=== PATIENT | male | born 1960 | race Caucasian/White ===

== ENCOUNTER 2019-12-10 21:16 | Inpatient (IN) | payer BC, MEDICAID, SELFPAY ==
[~2019-12-10] VITALS: Ht 175.3 cm; Wt 88.9 kg
--- NOTE | 2019-12-10 21:17 | NUR ---
PT BIB W/C TO ER BED 8
[2019-12-10 21:25] VITALS: BP 127/198
--- NOTE | 2019-12-10 21:26 | NUR ---
ERMD BEDSIDE EVALUATING PT
[2019-12-10] MEDS ORDERED: NACL 0.9% 1,000 ML IV ONE (21:35)
[2019-12-10] MEDS ORDERED: ACETAMINOPHEN EXTRA STRENGTH 500 MG TAB PO ONE (21:35)
--- NOTE | 2019-12-10 21:35 | NUR ---
59 YEAR OLD MALE BROUGHT IN BY FAMILY FOR ALTERED MENTAL STATUS. PER FAMILY PATIENT HAS HAD A COUGH, FEVER, AND SOB X 3 DAYS, THEN IN THE MORNING THE PATIENT WAS OFF BALANCE AND NOT ACTING HIMSELF AND SEEMED CONFUSED. PATIENT AOX3 TO NAME, , LOCATION. PATIENT WOULD ANSWER QUESTIONS INCORRECTLY AT TIMES. PATIENT GCS 14 ([id number]), BREATHING EVEN AND UNLABORED, LUNGS CTABL, SKIN WARM AND DRY. COVID PRECAUTIONS INTITIATED PER PROTOCOL. SPO2 95% ON 4L NC, PATIENT SPO2 88% ON RA. BLOOD SUGAR 164. PATIENT PLACED ON MONITOR, ERMD AT BEDSIDE. BED IN LOWEST POSITION, LOCKED, BED RAIL UPX1. PMH - HTN, HYPERLIPIDEMIA ALLERGIES - MORPHINE
--- NOTE | 2019-12-10 21:39 | NUR ---
Spoke with daughter digna, Digna states pt having cough, fever and SOB x 4 days. Pt having ALOC since 0300, Pt having loss of balance, fequent urination and abd pain. Digna states last time pt had ALOC, pt had surgery for diverticulitis. NKDA HX: HTN, Hyperlipidemia, diverticulitis
--- NOTE | 2019-12-10 21:55 | NUR ---
CORONAVIRUS TEST SWAB OBTAINED AND SENT TO LAB
--- NOTE | 2019-12-10 22:10 | NUR ---
PATIENT ALERT AND AWAKE, BREATHING EVEN AND UNLABORED
[2019-12-10 22:17] LABS: APPEARANCE,URINE CLEAR (CLEAR); BILIRUBIN,URINE NEGATIVE (NEGATIVE); BLOOD, URINE NEGATIVE (NEGATIVE); COLOR,URINE YELLOW (YELLOW); LEUKOCYTE ESTERASE ,URINE TRACE (NEGATIVE); NITRITE, URINE NEGATIVE (NEGATIVE); UGLUCOSE NEGATIVE (NEGATIVE)
[2019-12-10 22:18] LABS: HEMATOCRIT 46.8 % (36-52); LYMPHOCYTES # (AUTO) 1.4 K/uL (2.0-11.5); NEUTROPHILS # (AUTO) 4.3 K/uL (1.8-7.7)
[2019-12-10 22:22] LABS: BASOPHILS % (AUTO) 0.3 % (0.0-2.0); EOSINOPHILS % (AUTO) 0.2 % (0.0-4.0); HEMOGLOBIN 16.4 g/dL (12.0-18.0); LYMPHOCYTES % (AUTO) 22.2 % (20.5-51.1); MEAN CORPUSCULAR HEMOGLOBIN 31 pg (27-31); MEAN CORPUSCULAR HGB CONC 35 g/dL (33-37); MONOCYTES # (AUTO) 0.5 K/uL (0.8-1.0); MONOCYTES % (AUTO) 7.8 % (1.7-9.3); NEUTROPHILS % (AUTO) 69.5 % (42.2-75.2); PLATELET COUNT (AUTO) 197 K/uL (140-450); RED BLOOD CELL COUNT(AUTO) 5.26 MIL/uL (4.20-6.10); RED CELL DISTRIBUTION WIDTH 13.2 % (11.6-13.7); WHITE BLOOD COUNT (AUTO) 6.2 K/uL (4.8-10.8)
[2019-12-10 23:02] LABS: ALBUMIN 3.5 g/dL (3.4-5.0); ANION GAP 14.2 (8-16); CARBON DIOXIDE 26.6 mmol/L (21-32); CREATININE 1.6 mg/dL (0.6-1.3); TOTAL BILIRUBIN 0.6 mg/dL (0.0-1.0)
[2019-12-10 23:04] LABS: RBC,URINE 0-5 /HPF (0-5); WBC,URINE 0-5 /HPF (0-5)
[2019-12-10 23:14] LABS: CREATINE KINASE MB 0.8 ng/mL (0-3.6)
[2019-12-10 23:20] LABS: POTASSIUM 2.8 mmol/L (3.5-5.1)
--- NOTE | 2019-12-10 23:47 | NUR ---
PATIENT ALERT AND AWAKE, BREATHING EVEN AND UNLABORED. CT CALLED REGARDING PATIENT.
--- NOTE | 2019-12-10 23:57 | NUR ---
PATIENT TAKEN TO CT
--- NOTE | 2019-12-11 00:14 | NUR ---
PT RETURNED FROM CT VIA W/C
[2019-12-11] MEDS ORDERED: cefTRIAXone 2,000 MG in DEXTROSE 5% 100 ML IV ONE (00:45)
[2019-12-11] MEDS ORDERED: AZITHROMYCIN 250 MG TAB PO ONE (00:45)
[2019-12-11] MEDS ORDERED: POTASSIUM CHLORIDE 10 MEQ TABER PO ONE ×2 (01:00→23:00)
[2019-12-11] MEDS ORDERED: ALBUTEROL HFA MDI 90 MCG/ACTUATION 8 GM INH PRN (01:05)
--- NOTE | 2019-12-11 01:05 | NUR ---
PATIENT ALERT AND AWAKE, BREATHING EVEN AND UNLABORED
[2019-12-11] MEDS ORDERED: cefTRIAXone 2,000 MG VIAL ONE (01:07)
[2019-12-11] MEDS: NACL 0.9% 1,000 ML IV SCH (01:31)
[2019-12-11] MEDS ORDERED: DOCUSATE SODIUM 100 MG GELCAP PO PRN (01:35)
[2019-12-11 01:50] VITALS: BP 119/61
--- NOTE | 2019-12-11 01:50 | NUR ---
Patient will be admitted to care of DR IBARRA. Admited to TELE. Will go to room 115. Belongings list completed. Report to RICHARD ESPINOZA.
--- NOTE | 2019-12-11 01:50 | NUR ---
RECEIVED PT. FROM ER PER TEN AWAKE AND ALERT. IVF SITE TO [facility] #20. IVF ABT INFUSING WELL. NO NOTED ADVERSE REACTIONS TO MEDICATION. PT. ABLE TO VERBALIZE WELL WITH RESIDENT MD GUZMAN. PT. DX. SOB, FEVER R/O COVID 19. ORIENTED TO ROOM AND CARE GIVERS. NOTED WITH BOUTS OF CONFUSION. ISOLATION PRECAUTION . CALL LIGHT WITH IN REACH.
--- NOTE | 2019-12-11 01:56 | NUR ---
Note shannon in ED - 12/11/19 at 0158 by ULISES Patient will be admitted to care of DR IBARRA. Admited to TELE. Will go to room 115. Belongings list completed. Report to RICHARD ESPINOZA.
[2019-12-11 02:07] LABS: PROTHROMBIN TIME 10.5 secs (10.8-13.4)
[2019-12-11 02:20] LABS: BARBITURATE, URINE NEGATIVE ng/ml (NEG <=200); BENZODIAZEPINE, URINE NEGATIVE ng/mL (NEG <=200); CANNABINOID, URINE NEGATIVE ng/mL (NEG <=50); COCAINE, URINE NEGATIVE ng/mL (NEG <=300); OPIATE, URINE NEGATIVE ng/mL (NEG <=2000); PHENCYCLIDINE SCREEN,URINE NEGATIVE ng/mL (NEG <=25)
[2019-12-11 03:05] LABS: MAGNESIUM 1.9 mg/dL (1.8-2.4); PHOSPHORUS 2.6 mg/dL (2.5-4.9); THYROID STIMULATING HORMONE 1.96 uIU/mL (0.34-3.74)
[2019-12-11] MEDS: HYDROXYCHLOROQUINE 200 MG TAB PO SCH ×3 (03:23→21:00)
[2019-12-11 04:00] VITALS: BP 123/74
--- NOTE | 2019-12-11 04:14 | NUR ---
PT. AWAKE AND STANDING IN ROOM. PULLED OUT IVF. PT. ABLE TO GO RESTROOM BY HIMSELF. ABLE TO VERBALIZE NEEDS. REMINDED TO PLEASE USE CALL LIGHT FOR ANY HELP HE MAY NEED OR IF HE WANTS TO GO RESTROOM. "OK"
[2019-12-11] MEDS ORDERED: OLANZapine 2.5 MG TAB PO ONE (05:20)
--- NOTE | 2019-12-11 05:40 | NUR ---
PT. FOUND INSIDE ROOM WALKING AROUND NAKED. INFORMED CHARGE NURSE AND RESIDENT MD OF PT. BEING CONFUSED. PT. SMILED WHEN I ASKED HIM WHAT HE WAS DOING. ASSISTED BY CLINICAL OPERATIONS MANAGER AT THIS TIME TO PUT BACK HOSPITAL GOWN. PT. PULLED OUT IVF SITE. TIP INTACT.
--- NOTE | 2019-12-11 07:05 | NUR ---
ENDORSED TO AM RN FOR CONTINUITY OF CARE. PT. AT THIS TIME IN BED SITTING UP AND WATCHING TV. BEEN AFEBRILE ON MY SHIFT. CALL LIGHT WITH IN REACH. TELEMETRY MONITORING. ISOLATION PRECAUTION OBSERVED.
--- NOTE | 2019-12-11 07:10 | NUR ---
REPORT GIVEN FROM NIGHT NURSE. PATIENT IN STABLE CONDITION. NO IV ACCESS AT THIS TIME. PLANS OF CARE DISCUSSED. SAFETY MEASURES IN PLACE.
[2019-12-11] MEDS ORDERED: OLANZapine 2.5 MG TAB ONE (07:31)
[2019-12-11 08:00] VITALS: BP 136/73
--- NOTE | 2019-12-11 08:20 | NUR ---
PATIENT HAS BEEN SCREENED AND CATEGORIZED MODERATE NUTRITION RISK. PATIENT WILL BE SEEN WITHIN 3-5 DAYS OF ADMISSION. 12/13/19 12/15/[address]
[2019-12-11] MEDS: OLANZapine 2.5 MG TAB PO SCH (09:00)
[2019-12-11 09:09] LABS: CHOL/HDL RATIO 6.1 (1-4.5)
[2019-12-11] MEDS: AZITHROMYCIN 250 MG TAB PO SCH (09:27)
[2019-12-11] MEDS: ASCORBIC ACID 500 MG TAB PO SCH (09:28)
[2019-12-11] MEDS: ZINC SULF 220 MG CAP PO SCH (09:28)
--- NOTE | 2019-12-11 09:30 | NUR ---
ZYPREXA NOT GIVEN. MED GIVEN AT 0732 BY NIGHT NURSE.
--- NOTE | 2019-12-11 09:45 | NUR ---
PATIENT AWAKE, ALERT, ORIENTED X2. PATIENT REQUIRES FREQUENT PROMPTING AND REORIENTATION. PATIENT EDUCATED TO KEEP O2 NC ON AT ALL TIMES TO PREVENT SOB. WILL CONTINUE TO MONITOR.
--- NOTE | 2019-12-11 10:14 | NUR ---
Precision Honer Note: Basic Screen: Yes High Risk DC Screen [place]: DOMINGO JOINER [place] Relationship: Pre-Admission Living Arrangements: Lives with Other Prior ADL Independent Current Home Health Name/Tel: N/A Current DME/02 Name/Tel: N/A Current Hospice Name/Tel: N/A Current Dialysis Name/Tel: N/A Healthcare Decision Maker: Patient Advance Directive No Physician Orders for Life Sustaining Treatment Form No Patient/Family Have Educational Needs No Discipline: Case Mgt/Social Svcs Tentative Discharge Plan/Destination: No Needs Identified Will require assistance post discharge: No Referred to Kiln Repairer: No Tentative Discharge Plan Summary: Patient is a 59-year-old male admitted for fever and r/o COVID. Patient has PMHX of HTN, HLD, and diverticulitis. Patient was admitted from home where mikal camelia with , daughter, and grandchild. SW contacted Domingo Joiner [phone]. Per Domingo, patient has no history of mental health or substance abuse history. Domingo stated that patient is independent with ADLs and was healthy prior to his hospitalization. Tentative discharge plan is for patient to return home. No further needs identified. Signature: MISSY Guajardo Date: Dec 11, 2019 Time: 10:14
--- NOTE | 2019-12-11 11:16 | NUR ---
DC PLANNIN YRS OLD MALE PATIENT WAS ADMITTED FROM HOME WITH A DX OF FEVER, SOB,R/O COVID. PT HAS A HX OF HTN, HLD AND DIVERTICULITIS. CXR SHOWED NO ACUTE CARDIOPULMONARY DISEASE ,CT CHEST SHOWED MULTIPLE PATCHY GROUND GLASS HAZY OPACITIES IN THE MID AND LOWED LUNGS BILATERALLY CONSISTENT WITH COVID 19 . BLOOD AND URINE CULTURE PENDING, COVID 19 TEST PENDING WELL. STARTED ON ABX IV ROCEPHIN, AZITHROMYCIN , PLAQUENIL 400 MG PO BID FOR 4 DAYS. STARTED ON ZINC 2200MG DAILY AND ASCORBIC ACID . RT PROTOCOL WITH MDI BREATHING TREATMENT PULMO AND ID DR RAYMOND CONSULT ORDERED. DC PLAN PER MD RECOMMENDATIONS CM TO FOLLOW .
[2019-12-11 12:00] VITALS: BP 125/81
--- NOTE | 2019-12-11 12:15 | NUR ---
ROUNDS MADE. PATIENT EDUCATED TO KEEP O2 NC AT ALL TIMES TO PREVENT SOB. PATIENT VERBALIZED UNDERSTANDING. PATIENT IS ALERT, AWAKE, WITH PERIODS OF CONFUSION. ENCOURAGED TO USE CALL LIGHT FOR ASSISTANCE.
[2019-12-11] MEDS ORDERED: POTASSIUM CHLORIDE 10 MEQ TABER PO SCH (14:00)
--- NOTE | 2019-12-11 14:00 | NUR ---
PATIENT IN STABLE CONDITION. PATIENT ON O2 @ 3L NC. EDUCATED ABOUT THE IMPORTANCE OF KEEPING THE OXYGEN CANNULA IN PLACE AT ALL TIMES. PATIENT REQUIRES PROMPTING AND REORIENTATION. WILL CONTINUE TO MONITOR. NO DISTRESS NOTED.
--- NOTE | 2019-12-11 15:00 | NUR ---
PATIENT STILL WITH NO IV ACCESS. UNABLE TO SUCCESSFULLY INSERT IV AFTER MULTIPLE ATTEMPTS.
[2019-12-11 16:00] VITALS: BP 130/73
--- NOTE | 2019-12-11 17:45 | NUR ---
PICC LINE TO BE INSERTED. CONSENT RECEIVED FROM DAUGHTER AND VIA TELEPHONE VERBAL CONSENT.
--- NOTE | 2019-12-11 18:00 | NUR ---
PATIENT IS IN BED ASLEEP. RESPIRATION EVEN AND UNLABORED. DENIES ANY PAIN. O2 ON @ 3L VIA NC. NO DISTRESS NOTED. WILL CONTINUE TO MONITOR.
[2019-12-11 19:19] LABS: ANION GAP 18.4 (8-16); CARBON DIOXIDE 23.8 mmol/L (21-32); CREATININE 1.8 mg/dL (0.6-1.3); POTASSIUM 3.2 mmol/L (3.5-5.1)
--- NOTE | 2019-12-11 19:20 | NUR ---
REPORT GIVEN TO NIGHT NURSE FOR CONTINUITY OF CARE. PATIENT IN STABLE CONDITION.
--- NOTE | 2019-12-11 19:21 | NUR ---
RECEIVED REPORT FROM AM SHIFT RN. PATIENT IN BED. PICC LINE NURSE IS AT THE BEDSIDE CURRENTLY INSERTING PICC LINE. PATIENT IN NOT IN ANY RESPIRATORY DISTRESS. ON 02 AT 3LPM VIA NC. DENIES PAIN. PLAN OF CARE WAS DISCUSSED. CALL LIGHT WITHIN REACH. WILL CONTINUE TO MONITOR.
[2019-12-11 20:00] VITALS: BP 137/69
--- NOTE | 2019-12-11 20:41 | NUR ---
RECEIVED REPORT FROM AM SHIFT. PATIENT IN NO APPARENT RESPIRATORY DISTRESS AT THIS TIME: RR 18, HR 96, SPO2 94% ON 4L NASAL CANNULA. AUSCULTATION REVEALS BILATERAL CLEAR BREATH SOUNDS. MDI PRN TX NO INDICATED AT THIS TIME. WILL CONTINUE TO MONITOR PATIENT.
--- NOTE | 2019-12-11 22:00 | NUR ---
PATIENT IS SITTING ON BED. NO DISTRESS NOTED. DENIES PAIN. DUE MEDS GIVEN ORDERED. GAVE PRN TYLENOL FOR TEMP 101. TOLERATED WELL. RESPIRATION EVEN AND UNLABORED. KEPT CLEAN,DRY AND COMFORTABLE. CALL LIGHT WITHIN REACH. WILL CONTINUE TO MONITOR.
--- NOTE | 2019-12-11 23:30 | NUR ---
PATIENT NOTED STANDING IN FRONT OF HIS TABLE. GUIDED PATIENT SAFELY TO BED. TEMP WENT DOWN TO 98.4. DENIES PAIN. RESPIRATION EVEN AND UNLABORED. PATIENT SLEPT BEFORE I WENT OUT OF THE ROOM. CALL LIGHT WITHIN REACH
[2019-12-11] MEDS: ACETAMINOPHEN 325 MG TAB PO PRN (23:42)
[2019-12-12] VITALS: BP 125/70
[2019-12-12] MEDS: NACL 0.9% 1,000 ML IV SCH ×2 (01:02→10:16)
[2019-12-12] MEDS ORDERED: ETOMIDATE 20 MG/10 ML VIAL IVP ONE (02:00)
[2019-12-12] MEDS ORDERED: ROCURONIUM 50 MG/5 ML VIAL IV ONE (02:00)
--- NOTE | 2019-12-12 02:30 | NUR ---
PATIENT SLEEPING. NO SOB NOTED. RESPIRATION EVEN AND UNLABORED. WILL CONTINUE TO MONITOR.
[2019-12-12 04:00] VITALS: BP 150/78
--- NOTE | 2019-12-12 04:30 | NUR ---
PATIENT ASLEEP. AROUSABLE THROUGH VERBAL. CHECKED V/S. AFEBRILE. 98.2. DENIES PAIN. NOT IN ANY ACUTE DISTRESS. CALL LIGHT WITHIN REACH AT ALL TIMES.
--- NOTE | 2019-12-12 06:45 | NUR ---
CHECKED PATIENT. AWAKE. ASKED IF HE IS OK. PATIENT SAID 'YES'. DENIES PAIN. NOT IN ANY ACUTE DISTRESS. KEPT COMFORTABLE, CLEAN AND DRY AT ALL TIMES. CALL LIGHT WITHIN REACH. WILL ENDORSE TO AM SHIFT FOR CONTINUITY OF CARE.
[2019-12-12 07:15] LABS: BASOPHILS % (AUTO) 0.5 % (0.0-2.0); HEMATOCRIT 43.7 % (36-52); HEMOGLOBIN 14.9 g/dL (12.0-18.0); LYMPHOCYTES # (AUTO) 1.6 K/uL (2.0-11.5); LYMPHOCYTES % (AUTO) 23.6 % (20.5-51.1); MEAN CORPUSCULAR HEMOGLOBIN 31 pg (27-31); MEAN CORPUSCULAR HGB CONC 34 g/dL (33-37); MEAN CORPUSCULAR VOLUME 89.9 fL (80-94); MONOCYTES # (AUTO) 0.4 K/uL (0.8-1.0); MONOCYTES % (AUTO) 5.3 % (1.7-9.3); NEUTROPHILS # (AUTO) 4.9 K/uL (1.8-7.7); NEUTROPHILS % (AUTO) 70.6 % (42.2-75.2); PLATELET COUNT (AUTO) 166 K/uL (140-450); RED BLOOD CELL COUNT(AUTO) 4.86 MIL/uL (4.20-6.10); RED CELL DISTRIBUTION WIDTH 13.2 % (11.6-13.7)
--- NOTE | 2019-12-12 07:20 | NUR ---
RECEIVED REPORT FROM SHINGLE SAWYER NURSE. PATIENT LYING DOWN IN BED SLEEPING, AROUSABLE BY VOICE. NO DISTRESS NOTED. AAOX2, INTERMITTENT CONFUSION PER NIGHT RN, SKIN INTACT. RUARM PICC LINE INTACT, PATENT, AND INFUSING IVF PER MD ORDERS. RESPIRATIONS EVEN, UNLABORED, ON O2 3L/MIN VIA NC. REVIEWED PLAN OF CARE WITH PATIENT. PATIENT VERBALIZED UNDERSTANDING. SAFETY MEASURES IN PLACE, CALL LIGHT WITHIN REACH. WILL CONTINUE TO MONITOR.
[2019-12-12 08:00] VITALS: BP 149/84
[2019-12-12 08:04] LABS: ALBUMIN 3.5 g/dL (3.4-5.0); ANION GAP 13.2 (8-16); ASPARTATE AMINOTRANSFERASE 98 U/L (15-37); CARBON DIOXIDE 28.4 mmol/L (21-32); CHLORIDE 99 mmol/L (98-107); CREATININE 1.4 mg/dL (0.6-1.3); GFR ARICAN-AMERICAN 66 mL/min (>90); GLUCOSE 99 mg/dL (74-106); MAGNESIUM 1.8 mg/dL (1.8-2.4); PHOSPHORUS 3.1 mg/dL (2.5-4.9); POTASSIUM 3.6 mmol/L (3.5-5.1); SODIUM SERUM 137 mmol/L (136-145); TOTAL BILIRUBIN 0.7 mg/dL (0.0-1.0); UREA NITROGEN, BLOOD 20 mg/dL (7-18)
--- NOTE | 2019-12-12 09:45 | NUR ---
PATIENT CONFUSED, HAD DIARRHEA ALL OVER FLOOR. ASSSITED SERVICE LINE COORDINATOR IN CLEANING PATIENT. SCHEDULED MEDICATIONS DUE GIVEN. WILL CONTINUE TO MONITOR.
[2019-12-12] MEDS: AZITHROMYCIN 250 MG TAB PO SCH (09:47)
[2019-12-12] MEDS: ZINC SULF 220 MG CAP PO SCH (09:47)
[2019-12-12] MEDS: ASCORBIC ACID 500 MG TAB PO SCH (09:47)
[2019-12-12] MEDS: OLANZapine 2.5 MG TAB PO SCH (09:47)
[2019-12-12] MEDS: HYDROXYCHLOROQUINE 200 MG TAB PO SCH ×2 (09:47→21:01)
--- NOTE | 2019-12-12 11:20 | NUR ---
DR. AGUILERA AT BEDSIDE REVIEWING PLAN OF CARE. PER DR. AGUILERA, HAVE RT PLACE HIM ON NON-REBREATHER MASK DUE TO HYPOXIA. NOTIFIED RESPIRATORY THERAPIST TONE, HE IS ON HIS WAY. ALSO CHECKED PATIENT'S TEMP, IT IS 102.0 WILL ADMINISTER TYLENOL.
[2019-12-12] MEDS: ACETAMINOPHEN 325 MG TAB PO PRN ×2 (11:28→17:44)
[2019-12-12] MEDS ORDERED: GLUCAGON 1 MG VIAL IVP PRN (11:40)
[2019-12-12] MEDS ORDERED: DEXTROSE 50% 50 ML SYR IVP PRN (11:40)
[2019-12-12] MEDS ORDERED: FUROSEMIDE 20 MG/2 ML VIAL IVP SCH (11:45)
--- NOTE | 2019-12-12 11:58 | NUR ---
SATURATION 88% ON HUMIDIFIED SUPPLEMENTAL OXYGEN AT 4 LPM VIA NC POST MDI THERAPY CHANGED OXYGEN DEVICE TO NON REBREATHER WITH SUPPLEMENTAL OXYGEN AT 15 LPM YANET/RN NOTIFIED REFERENCE RN NOTES AT 8780
[2019-12-12 12:00] VITALS: BP 121/78
--- NOTE | 2019-12-12 13:00 | NUR ---
PATIENT CONFUSED, GOT OUT OF BED AND HAD DIARRHEA ON THE FLOOR. ASSISTED INSTRUCTIONAL SYSTEMS DESIGNER IN CLEANING PATIENT AND FLOOR. SAFETY MEASURES IN PLACE, CALL LIGHT WITHIN REACH. WILL CONTINUE TO MONITOR.
--- NOTE | 2019-12-12 15:24 | NUR ---
PATIENT SITTING IN BED, CONTINUES TO REMOVE NON-REBREATHER MASK, CONFUSED. NO DISTRESS NOTED. WILL CONTINUE TO MONITOR.
[2019-12-12 16:00] VITALS: BP 114/82
[2019-12-12] MEDS: BLOOD GLUCOSE MONITORING 1 DEV DEV FS SCH ×2 (16:43→21:01)
--- NOTE | 2019-12-12 17:50 | NUR ---
TRANSFERRED PATIENT TO ICU BED 3 SAFELY. GAVE REPORT TO ALEXIS BLACKSEBD TEACHER AT ICU. ANSWERED ALL OF HER QUESTIONS. PATIENT TRANSFERRED AT THIS TIME TO ICU 3 IN STABLE CONDITION.
--- NOTE | 2019-12-12 17:50 | NUR ---
PT TEMP 100.4. PRN TYLENOL GIVEN. PATIENT TOLERATED IT. WILL CONTINUE TO MONITOR PATIENT.
--- NOTE | 2019-12-12 17:51 | NUR ---
RECEIVED REPORT FROM ALEXIS HOLT AT BEDSIDE FOR CONTINUITY OF CARE. PATIENT AMBULATED TO BED. ON 15L O2 NRB. NONCOMPLIANT AND CONFUSED, KEEPS ON MOVING LEADS. SETTLED PATIENT IN ROOM WITH BSC. PT IN DROPLET PRECAUTIONS TO R/O COVID. SAFETY PRECAUTIONS IN PLACE, CALL LIGHT WITHIN REACH, BED IN LOWEST POSITION WITH BRAKES ON.
--- NOTE | 2019-12-12 18:40 | NUR ---
PATIENT HAD DIARRHEA AND VOIDED ON FLOOR. PATIENT GOWN AND SOCKS CHANGED, LINENS CHANGED. PATIENT CONFUSED, REPEATEDLY ATTEMPTS TO REMOVE NRB MASK. ORIENTED HIM TO FLOOR, AND NEED FOR LEADS TO MONITOR STATUS AND MASK FOR OXYGEN. PATIENT STATED "OK" AND IS CURRENTLY CALM, SITTING ON SIDE OF BED, REFUSES TO GET BACK INTO BED, TEMPERATURE RETAKEN, TEMP 99.6. WILL CONTINUE TO MONITOR PATIENT. DROPLET AND SAFETY PRECAUTIONS IN PLACE, CALL LIGHT WITHIN REACH, WILL CONTINUE TO MONITOR PATIENT.
--- NOTE | 2019-12-12 19:30 | NUR ---
REPORT GIVEN TO INSPECTOR HANDBAG FRAMES RN AT BEDSIDE FOR CONTINUITY OF CARE. PATIENT SITTING ON SIDE OF BED, NO S/S OF DISTRESS NOTED.
--- NOTE | 2019-12-12 19:31 | NUR ---
RECEIVED REPORT FROM SOFIA JOVEL RN. PATIENT IS SITTING AT EDGE OF BED. NO DISTRESS NOTED. AAOX2, INTERMITTENT CONFUSION PER DAY RN, PT REMOVED NRB MASK IS SAT IN LOW 80S EDUCATE PT TO KEEP ON. RESPIRATIONS EVEN, UNLABORED. SKIN INTACT. CHRISTA PICC LINE CURRENTLY OFF FLUID D/T NON COMPLIANCE AND INTERMITTENT CONFUSION. REVIEWED PLAN OF CARE WITH PATIENT. PATIENT VERBALIZED UNDERSTANDING. SAFETY MEASURES IN PLACE, CALL LIGHT WITHIN REACH. WILL CONTINUE TO MONITOR.
[2019-12-12 20:00] VITALS: BP 132/81
--- NOTE | 2019-12-12 20:25 | NUR ---
RECEIVED REPORT FROM AM SHIFT. FOUND PATIENT STANDING IN ROOM WITH NO SUPPLEMENTAL OXYGEN. SPO2 IN LOW 80s. PLACED PATIENT BACK ON NRB WITH SPO2 OF 94%. PATIENT IN NO APPARENT RESPIRATORY DISTRESS AT THIS TIME: RR 21, HR 103, SPO2 94% ON NRB. AUSCULTATION REVEALS BILATERAL CLEAR/DIMINISHED BREATH SOUNDS. MDI PRN TX NO INDICATED AT THIS TIME. WILL CONTINUE TO MONITOR PATIENT.
--- NOTE | 2019-12-12 21:01 | NUR ---
PT IS AAOX1-2. ORIENTED PT TO ROOM AND STAFF. EDUCATED TO KEEP NON-REBREATHER MASK ON PT DE SAT IN THE 80% WITHOUT O2. PT VERBALIZED UNDERSTANDING. PT WITH URINE AND FECES ON GOWN,BED AND FLOOR. CLEANED PT AND SHEETS. NORA MEDICATIONS GIVEN PER ORDERS. PT TOLERATED WELL.
--- NOTE | 2019-12-12 22:05 | NUR ---
PT LAYING COMFORTABLY IN BED WITH EYES CLOSED. CHEST RISE AND FALL. SATURATING WELL ON 93% WITH O2.
[2019-12-13] VITALS (66 sets, daily range): BP systolic 68–150; BP diastolic 7–86
--- NOTE | 2019-12-13 | NUR ---
PT IS SLEEPING COMFORTABLY IN BED WITH EYES CLOSED. CHEST RISE AND FALL. PT IS EASILY AROUSABLE. VS:97 HR 119/75 RR 26, 94%, 98.6 DENIES PAIN. ALL NEEDS MET AT THIS TIME. WILL CONTINUE TO MONITOR.
--- NOTE | 2019-12-13 02:00 | NUR ---
CALLED RT D/T PT LOW O2 SAT IN HIGH 80'S ON 6L VIA NC. PT KEEPS REMOVING NRB DESPITE MX ATTEMPT AND REORIENTING PT. ASKED RT TO PUT PT ON OXIMIZER. PT IS NOW ON OXIMIZER 10L SAT 90% RR 27. WILL CONTINUE TO MONITOR.
--- NOTE | 2019-12-13 04:15 | NUR ---
PT O2 85% RR 28 DR DOTY IS AT BEDSIDE WILL ORDER STAT ABG. PT IS STILL ALOC. AAOX 2. BUT CALM AND ABLE TO FOLLOW COMMAND. WILL CONTINUE TO MONITOR.
--- NOTE | 2019-12-13 05:08 | NUR ---
RT AT BEDSIDE PERFORMING ABGs.
--- NOTE | 2019-12-13 05:20 | NUR ---
ABG RESULTS WERE REPORTED TO DR. DOTY. PATIENT STILL ON NRB AT 15L. WILL CONTINUE TO MONITOR PATIENT.
[2019-12-13] MEDS ORDERED: INTUBATION KIT MC ONE (05:52)
[2019-12-13] MEDS ORDERED: PHENYLEPHRINE 10 MG/ML VIAL ONE (05:59)
[2019-12-13 06:15] LABS: BASOPHILS # (AUTO) 0.1 K/uL (0.00-0.22); BASOPHILS % (AUTO) 0.7 % (0.0-2.0); HEMATOCRIT 44.7 % (36-52); LYMPHOCYTES % (AUTO) 13.4 % (20.5-51.1); MEAN CORPUSCULAR HEMOGLOBIN 30 pg (27-31); MEAN CORPUSCULAR HGB CONC 34 g/dL (33-37); MEAN CORPUSCULAR VOLUME 90.3 fL (80-94); MONOCYTES # (AUTO) 0.4 K/uL (0.8-1.0); MONOCYTES % (AUTO) 4.8 % (1.7-9.3); NEUTROPHILS # (AUTO) 6.1 K/uL (1.8-7.7); NEUTROPHILS % (AUTO) 81.1 % (42.2-75.2); PLATELET COUNT (AUTO) 180 K/uL (140-450); RED BLOOD CELL COUNT(AUTO) 4.95 MIL/uL (4.20-6.10); RED CELL DISTRIBUTION WIDTH 13.3 % (11.6-13.7); WHITE BLOOD COUNT (AUTO) 7.6 K/uL (4.8-10.8)
--- NOTE | 2019-12-13 06:15 | NUR ---
PATIENT OXYGEN KEEPS DESATURATING IN 70'S DESPITE ON NRB 15L O2. INFORM DR DOTY PER DOCTOR PATIENT WILL REQUIER INTUBATION. PT IS FULL CODE AND AGREES WITH TREATMENT. PTS O2 76% ON 15L RR 40 B/P 145/80 HR 100.
--- NOTE | 2019-12-13 06:30 | NUR ---
RUBEN MONCADA AND DR DOTY ARE AT BEDSIDE AND INTUBATED PT. VENT SETTINGS: AC VT 500 PEEP 5 RR 15 FIO2 100%. PT SAT 92% RR 15. WILL ORDER STAT CXR AND ABD. WILL CONTINUE TO MONITOR. Addendum: 12/13/19 at 0655 by Margaret Holguin RN 161/80 HR 120.
[2019-12-13 06:45] LABS: ANION GAP 12.3 (8-16); CARBON DIOXIDE 30.1 mmol/L (21-32); CREATININE 1.5 mg/dL (0.6-1.3); POTASSIUM 3.4 mmol/L (3.5-5.1)
--- NOTE | 2019-12-13 06:48 | NUR ---
PATIENT DOMINGO JOINER AND DAUGHTER SOLITARIO INFORMED AND UPDATED OF PATIENT'S LATEST MEDICAL CONDITION, THAT PATIENT WAS RECENTLY INTUBATED BY THE DOCTOR.
[2019-12-13 06:49] LABS: MAGNESIUM 2.1 mg/dL (1.8-2.4); PHOSPHORUS 2.5 mg/dL (2.5-4.9)
--- NOTE | 2019-12-13 06:54 | NUR ---
RADIOLOGY IS AT BEDSIDE TO PERFORM CXR TO VERIFY PLACEMENT.
[2019-12-13] MEDS: BLOOD GLUCOSE MONITORING 1 DEV DEV FS SCH ×4 (06:55→21:17)
--- NOTE | 2019-12-13 07:06 | NUR ---
AT 0550 WENT TO BEDSIDE WITH DR. DOTY TO DISCUSSED ABOUT INTUBATION. DR. MOHR WAS CALL FOR INTUBATION. PATIENT WAS SUCCESSFULLY INTUBATED AND PLACED ON VENT SETTINGS AC/VC 15, 500, +10, 100%. SPO2 92%. REPORT WAS GIVEN TO AM SHIFT.
[2019-12-13] MEDS ORDERED: PROPOFOL 1000 MG/100 ML PREMIX 100 ML IV ONE (07:29)
[2019-12-13] MEDS ORDERED: PROPOFOL 1000 MG/100 ML PREMIX 100 ML IV PRN ×3 (07:30→15:25)
--- NOTE | 2019-12-13 07:30 | NUR ---
GAVE BEDSIDE REPORT TO DEPARTMENT SALES MANAGER. PT IS SEDATED AND ON VENTILATOR. PT IS STABLE AT THIS TIME.
--- NOTE | 2019-12-13 07:30 | NUR ---
RECEIVED REPORT FROM RICHARD RN, PT.WAS INTUBATED HAS PICC LINE ON RT UPPER ARM NO IV IN FUSSING AT THE TIME
--- NOTE | 2019-12-13 08:00 | NUR ---
ASCENCIO CATHETER INSERTED HAS CLEAR DARK MEÑO URINE RETURN. TRY TO INSERTED NG TUBE IT MAKE PATIENT AGITATED, UNABLE TO INSERTED AT THIS TIME.,
[2019-12-13] MEDS: ZINC SULF 220 MG CAP PO SCH (09:00)
[2019-12-13] MEDS: ASCORBIC ACID 500 MG TAB PO SCH (09:00)
[2019-12-13] MEDS: OLANZapine 2.5 MG TAB PO SCH (09:00)
[2019-12-13] MEDS: HYDROXYCHLOROQUINE 200 MG TAB PO SCH ×2 (09:00→21:17)
--- NOTE | 2019-12-13 10:20 | NUR ---
RECEIVED PT FROM CHARGE NURSE. PT IS AROUSABLE TO LIGHT PAIN. EYES PERRL. PT IS INTUBATED W/ VENT SETTINGS AT A/CVC FIO2 100% VT 500 RATE 22 PEEP 12. PT WAS BREATHING SHALLOWLY AND WAS TACHYPNEIC W/ CRACKLE BREATH SOUNDS. RT AT BEDSIDE. PT HAD +1 RADIAL PULSES. CAP REFILL <3 SECONDS. PT ON SOFT WRIST RESTRAINTS. SKIN UNDERNEATH IS INTACT AND INJURY FREE. PT HAS CHRISTA PICC LINE DOUBLE LUMEN THAT IS ASYMPTOMATIC, PATENT AND INTACT. ASCENCIO CATHETER NOTED. BED IS LOCKED W/ HOB AT 30 DEGREES. SAFETY MEASURES IN PLACE. CALL LIGHT WITHIN REACH. WILL CONTINUE TO MONITOR.
--- NOTE | 2019-12-13 10:26 | NUR ---
PT IS SEMI AWAKE TRY TO PULL OUT THE TUBE , INFORM MARQUES SOLORZANO . HE ORDER SOFT WRIST RESTAIN. APPLY ORDERED.
--- NOTE | 2019-12-13 10:30 | NUR ---
VIEWED XRAY POST INITIAL INTUBATION. RADIOLOGIST WROTE THE TUBE WAS 10 CM ABOVE AGGIE AND ADVISED TO ADVANCE TUBE. WENT INTO ROOM TO ADVANCE TUBE WITH THE HELP OF ANOTHER RT. WHILE ADVANCING, PT WAS AGITATED AND THRASHING. THE TUBE BECAME DISLODGED DUE TO THE TUBE LOCATION BEING CONSIDERABLY HIGH. CALLED CODE BLUE AND NOTIFED CHARGE NURSE. WITH THE HELP OF DR. BOYCE, PT WAS REINTUBATED WITH A 7.5, 26CM @ THE LIP. BILATERAL BS HEARD, GOOD COLOR CHANGE. PT STABILIZED AND WILL CONTINUE TO MONITOR.
[2019-12-13] MEDS ORDERED: LORazepam 2 MG/ML VIAL IM/IVP PRN (10:35)
--- NOTE | 2019-12-13 10:40 | NUR ---
JOSAFAT HERRERA CALLED. PT BECAME HYPOXIC AND SANGEETA. DR BOYCE REINTUBATED PT 7.5 26CM AT LIP. SEE JOSAFAT EHRRERA RECORD.
[2019-12-13] MEDS: AZITHROMYCIN 250 MG in DEXTROSE 5% 250 ML IV SCH (11:00)
[2019-12-13] MEDS ORDERED: KCL 20 MEQ/WATER INJ PREMIX 100 ML IV SCH (11:00)
[2019-12-13] MEDS: NOREPINEPHRINE 8 MG in DEXTROSE 5% 250 ML IV PRN ×2 (12:05→21:15)
--- NOTE | 2019-12-13 12:05 | NUR ---
LEVOPHED DRIP STARTED AT 1205 RATE OF 5MCG/MIN TO MAINTAIN BP ABOVE 90. WILL CONTINUE TO MONITOR
[2019-12-13] MEDS: ACETAMINOPHEN 325 MG TAB PO PRN (13:44)
[2019-12-13] MEDS ORDERED: KCL 20 MEQ/WATER INJ PREMIX 100 ML IV ONE (14:21)
--- NOTE | 2019-12-13 17:28 | NUR ---
BLOOD GLUCOSE 159. PT IS NPO. DR. DOTY MADE AWARE. INFORMED NURSE TO HOLD INSULIN FOR NOW UNTIL TUBE FEEDING STARTS.
--- NOTE | 2019-12-13 18:00 | NUR ---
PT HAD SEIZURE LIKE ACTIVITY W/ MUSCLE LIKE JERKING. PRN ATIVAN WAS ADMINISTERED. DR DOTY MADE AWARE.
--- NOTE | 2019-12-13 19:15 | NUR ---
RECEIVED BEDSIDE REPORT FROM CONNER ESPINOZA. PT ETT TO VENT. SEDATED RASS -4. ON ACVC SETTINGS FIO2 100%, TV 500, RATE 16, PEEP 12. SINUS RHYTHM ON MONITOR. TACHPNEIC BREATHING NOTED. PICC LINE R FA DOUBLE LUMEN, INFUSING PROPOFOL 30 MCG LEVO 13 MCG, AND NS AT 40 ML/HR. NGT IN R NARE IN PLACE, CLAMPED. DRY WEIGHT 90 KG. HOB 30 DEGREES. BED LOCKED IN LOWEST POSITION. WILL CONTINUE TO MONITOR.
--- NOTE | 2019-12-13 20:01 | NUR ---
RECEIVED REPORT FROM AM SHIFT. PATIENT SEEN AND ASSESSED. PATIENT IS INTUBATED WITH EET SIZE 7.5 AND SECURED WITH ANCHOR-FAST AT 26CM. PATIENT ON VENT SETTINGS: AC/VC 16, 500, +12, 100%. VENT PLUGGED IN RED OUTLET, ALARMS SET AND AUDIBLE, HOB > 30 DEGREES, AND BVM AT BEDSIDE. PATIENT SEEMS TO BE IN RESPIRATORY DISTRESS AT THIS TIME. DR DOTY AND RN WERE NOTIFIED. DOCTOR WILL ORDER NEW SEDATION. AUSCULTATION REVEALS BILATERAL COARSE BREATH SOUNDS. WILL CONTINUE TO MONITOR PATIENT.
[2019-12-13] MEDS ORDERED: fentaNYL 1 MG in NACL 0.9% 80 ML IV PRN (21:30)
--- NOTE | 2019-12-13 22:30 | NUR ---
PT EXHIBITING TACHYPNEIC BREATHING. RT AT BEDSIDE. DR DOTY AWARE. ORDERS RECEIVED TO START FENTANYL DRIP.
[2019-12-14] VITALS (104 sets, daily range): BP systolic 82–141; BP diastolic 49–86
[2019-12-14] MEDS ORDERED: MIDAZOLAM HCL IV PRN ×2
[2019-12-14] MEDS ORDERED: PHENYLEPHRINE 10 MG in NACL 0.9% 250 ML IV PRN ×2
[2019-12-14] MEDS ORDERED: NACL 0.9% IV PRN ×2
[2019-12-14] MEDS ORDERED: fentaNYL 0.05 MG/ML VIAL ONE (00:05)
--- NOTE | 2019-12-14 00:16 | NUR ---
PT EXHIBITING SEIZURE LIKE ACTIVITY, JERKING MOVEMENTS. 1 MG OF ATIVAN GIVEN. DR DOTY AWARE. SEIZURE LIKE ACTIVITY, STOPPED AFTER MEDICATION GIVEN.
--- NOTE | 2019-12-14 00:30 | NUR ---
RECEIVED PT FROM ALEXIS ZARAGOZA. PT RESTING IN BED W RASS -4 ACHIEVED PER MD ORDERS. PERRL. SPO2 @ 99% ETT TO VENT WITH SETTINGS FOLLOWS: AC/VC: 16, 500, 12, 100%. SHALLOW BREATHING NOTED WITH DIMINISHED BREATH SOUNDS THROUGHOUT. ETT 25CM @ LIP LINE. RR 41/MIN. NGT PATENT WITH ZERO RESIDUAL NOTED. + PLACEMENT VERIFIED VIA AIR BOLUS. BOWEL SOUNDS ACTIVE X4. ABD SOFT, NON-DISTENDED. PERIPHERAL IV TO RT AC INFUSING PROPOFOL 30 MCG/KG/MIN, LEVOPHED 16.87 ML/HR (8.997 MCG/MIN), FENTANYL 3.6 ML/HR (0.5 MCG/KG/HR) NS 40 ML/HR. ASCENCIO CATH IN PLACE DRAINING CLEAR, YELLOW URINE TO GRAVITY. DRY WEIGHT 90 KG. SKIN WARM, DRY, AND INTACT. SAFETY PRECAUTIONS IN PLACE. BED LOW AND LOCKED. WILL CONT TO MONITOR FOR CHANGES. Addendum: 12/14/19 at 0500 by Hortencia Serrano RN ERROR. NOT PERIPHERAL IV, CHRISTA PICC.
[2019-12-14] MEDS: NACL 0.9% 1,000 ML IV SCH (01:31)
--- NOTE | 2019-12-14 01:50 | NUR ---
PT WAS DESATURATING IN LOW 80s ON Fi02 OF 100% AND PEEP OF [id number] ON VC VENTILATION. INCREASED PEEP TO [id number] WITH SPO2 OF 87%. PATIENT WAS SWITCHED TO PC MODE WITH PEEP [id number]. SPO2 INCREASED TO 98%. FiO2 WAS TITRATED TO 90% WITH SPO2 OF 95%. DR. DOTY WAS NOTIFIED. CURRENT VENT SETTINGS: PC 10, RR 16, iT 1.00, PEEP [id number]. WILL CONTINUE TO MONITOR PATIENT.
--- NOTE | 2019-12-14 02:00 | NUR ---
REPOSITIONED PT WITH PRESSURE AREAS OFFLOADED AT THIS TIME. RASS REMAINS -4 PER ORDERS. SAFETY PRECAUTIONS REMAIN IN PLACE. WILL CONT TO MONITOR.
[2019-12-14] MEDS ORDERED: MIDAZOLAM MDV 50 MG in NACL 0.9% 40 ML IV PRN (02:15)
--- NOTE | 2019-12-14 04:30 | NUR ---
DR DOTY AT WINDOW EVALUATING PT. INSTRUCTED TO DECREASE LEVOPHED D/T BP 121/74. LEVOPHED DECREASED FROM 16.87 ML/HR TO 13.12 ML/HR. WILL CONT TO MONITOR.
[2019-12-14] MEDS: LORazepam 2 MG/ML VIAL IM/IVP PRN ×3 (04:53→23:09)
--- NOTE | 2019-12-14 05:34 | NUR ---
PATIENT IS RESTING IN BED WITH NO APPARENT RESPIRATORY DISTRESS AT THIS MOMENT. AIRWAY IS PATENT AND EET IS SECURED. CURRENT FiO2 ON THE VENT IS 85% WITH SPO2 OF 93%-95%. WILL CONTINUE TO MONITOR PATIENT.
[2019-12-14 06:06] LABS: BASOPHILS % (AUTO) 0.3 % (0.0-2.0); LYMPHOCYTES # (AUTO) 0.9 K/uL (2.0-11.5); LYMPHOCYTES % (AUTO) 10.4 % (20.5-51.1); MEAN CORPUSCULAR HEMOGLOBIN 31 pg (27-31); MEAN CORPUSCULAR HGB CONC 34 g/dL (33-37); MEAN CORPUSCULAR VOLUME 90.1 fL (80-94); MONOCYTES # (AUTO) 0.2 K/uL (0.8-1.0); MONOCYTES % (AUTO) 1.9 % (1.7-9.3); NEUTROPHILS # (AUTO) 7.5 K/uL (1.8-7.7); NEUTROPHILS % (AUTO) 87.4 % (42.2-75.2); PLATELET COUNT (AUTO) 191 K/uL (140-450); RED BLOOD CELL COUNT(AUTO) 4.55 MIL/uL (4.20-6.10); RED CELL DISTRIBUTION WIDTH 13.4 % (11.6-13.7); WHITE BLOOD COUNT (AUTO) 8.6 K/uL (4.8-10.8)
--- NOTE | 2019-12-14 06:43 | NUR ---
REC'D PT ON [employer] VENT SETTINGS PC10 RR16 ITIME 1.00 PEEP 15 FIO2 85% ALARMS ON AND AUDIBLE AND AMBU BAG AT HOB AND VENT IS PLUGGED INTO RED OUTLET, SXN PT MODERATED AMT OF THICK BLOOD SECRETIONS, B\S ARE COARSE BILATERALLY NO MDI TX NEEDED AT THIS TIME NO SIGNS OF SOB, PT IS ORALLY INTUBATED WITH 7.5 ETT SECURED WITH ANCHOR FAST AT 26 CM PT IS RESTING
[2019-12-14 07:19] LABS: ALBUMIN 2.7 g/dL (3.4-5.0); ANION GAP 15.4 (8-16); ASPARTATE AMINOTRANSFERASE 374 U/L (15-37); CARBON DIOXIDE 23.9 mmol/L (21-32); CHLORIDE 105 mmol/L (98-107); GFR ARICAN-AMERICAN 44 mL/min (>90); GLUCOSE 141 mg/dL (74-106); LACTATE DEHYDROGENASE 768 U/L (85-227); MAGNESIUM 2.1 mg/dL (1.8-2.4); POTASSIUM 3.3 mmol/L (3.5-5.1); SODIUM SERUM 141 mmol/L (136-145); TOTAL BILIRUBIN 0.6 mg/dL (0.0-1.0); UREA NITROGEN, BLOOD 26 mg/dL (7-18)
[2019-12-14] MEDS: BLOOD GLUCOSE MONITORING 1 DEV DEV FS SCH ×4 (07:31→20:50)
--- NOTE | 2019-12-14 07:33 | NUR ---
RECEIVED CHANGE OF SHIFT REPORT FROM AUDIT MGR RN. PT IS SEDATED W/ PROPOFOL 30 MCG/KG/MIN AND FENTANYL 0.5 MCG/KG/HR TO KEEP RASS -4 VIA CHRISTA PICC. PT IS ON LEVOPHED DRIP TO MAINTAIN SBP >90 RUNNING AT 7MCG/MIN. PT ALSO HAS NS IVF AT 40ML/HR. PT IS NOT AROUSABLE TO VOICE. ETT TO VENT W/ SETTINGS AT [facility] 10 FIO2 85% RATE 16 PEEP 15. OBSERVED EQUAL RISE AND FALL OF THE CHEST. NO SIGNS OF DISTRESS AND VSS AT THIS TIME. ASCENCIO CATHETER NOTED. LIFE SAVING EQUIPMENT IN RED PLUGS. HOB AT 30 DEGREES AND LOCKED. WILL CONTINUE TO MONITOR Addendum: 12/14/19 at 1656 by Gilbert Enriquze RN RN FORGOT TO MENTION RIGHT NARE NGT AND DRY WEIGHT 90KG.
[2019-12-14] MEDS: OLANZapine 2.5 MG TAB PO SCH (08:27)
[2019-12-14] MEDS: HYDROXYCHLOROQUINE 200 MG TAB PO SCH ×2 (08:27→21:18)
[2019-12-14] MEDS: PANTOPRAZOLE 40 MG INJ VIAL IVP SCH (08:27)
[2019-12-14] MEDS: ASCORBIC ACID 500 MG TAB PO SCH (08:27)
[2019-12-14] MEDS: ZINC SULF 220 MG CAP PO SCH (08:27)
[2019-12-14] MEDS: ACETAMINOPHEN 325 MG TAB PO PRN ×2 (08:28→16:50)
--- NOTE | 2019-12-14 09:15 | NUR ---
DISCHARGE PLANNING: THIS IS A 59 Y/O MALE PATIENT FROM HOME, WHO CAME IN DUE TO SOB, FEVER, ALOC X3-4 DAYS. PAST MEDICAL HISTORY INCLUDE HTN, HLD AND DIVERTICULITIS. INITIAL DIAGNOSIS OF FEVER, SOB, POSSIBLE COVID. CURRENT LABS INCLUDE WBC 8.6, H/H 14.0/41.0, NA/K 141/3.3, BUN/CREA 26/2.0. (+) COVID. ON PROTONIX IV. ORALLY INTUBATED TO VENT FIO2 85%. SEDATED WITH PROPOFOL AND FENTANYL. ON LEVOPHED DRIP. STOOL (-) FOR C DIFF. BLOOD C/S NO GROWTH AFTER 48 HOURS. ON AZITHROMYCIN, PLAQUENIL. CARDIO, PULMO AND ID CONSULTS IN PLACE. DC PLAN PENDING ON PATIENT'S RESPONSE TO TREATMENT. Addendum: 12/15/19 at 1013 by Kayleigh Silva STILL IN ICU, ORALLY INTUBATED TO VENT FIO2 70%- O2 SAT 100%. SEDATED WITH PROPOFOL. ON LEVOPHED DRIP. CURRENT LABS INCLUDE WBC 8.5, H/H 13.9/41.6, NA/K 142/3.8, BUN/CREA 27/2.0 AND ALB 2.5. (+) COVID. ON ZOSYN, AZITHROMYCIN. NEPHRO CONSULTED. CARDIO, ID AND PULMO CONSULTS IN PLACE. STOOL (-) FOR C DIFF. BLOOD C/S NO GROWTH AFTER 48 HOURS. DC PLAN PENDING ON PATIENT'S RESPONSE TO TREATMENT. Addendum: 12/16/19 at 1017 by Kayleigh Silva CM SILL IN ICU. ORALLY INTUBATED TO VENT FIO2 70%, O2 SAT 100%. SEEN BY ID - RECOMMENDS TO CONTINUE CURRENT ANTIBIOTICS AZITHROMYCIN, PLAQUENIL AND ZOSYN. SEEN BY PULMO - TO CONTINUE STEROID, CONTINUE HIGH SEDATION-VERSED AND FENTANYL, WEAN VASOPRESSOR-LEVOPHED, IV DIURETICS-ON LASIX IV AND MONITOR RENAL FAILURE. SEEN BY CARDIO-EMPIRIC ANTIBIOTICS,DIURETICS AND CLOSE FOLLOW UP OF RENAL FUNCTION. DC PLAN PENDING ON PATIENT'S RESPONSE TO TREATMENT. Addendum: 12/17/19 at 0918 by Kayleigh Silva STILL IN ICU. ORALLY INTUBATED TO VENT-FIO2 50%, O2 SAT, 95%. SEDATED WITH FENTANYL AND VERSED. ON LEVOPHED DRIP. CURRENT LABS INCLUDE WBC 12.8, H/H 12.8/38.1, BUN/CREA 44/2.2 AND LACTIC ACID 2.2. ON ZOSYN, SOLU-MEDROL, LASIX AND PROTONIX IV. SEEN BY CARDIO - SUPPORTIVE RESPIRATORY AND HEMODYNAMIC CARE. SEEN BY ID - DISCONTINUE AZITHROMYCIN AND PLAQUENIL. AND CONTINUE ZOSYN. SEEN BY PULMO-CONTINUE PRONING PAO2 IMPROVING, WEAN VASOPRESSORS, IV DIURETICS AND CONTINUE MECHANICAL VENT. DC PLAN PENDING ON PATIENT'S RESPONSE TO TREATMENT. Addendum: 12/19/19 at 0908 by Kayleigh Silva CM STILL IN ICU, ORALLY INTUBATED TO VENT, FIO2 50%, O2 SAT 98%. SEDATED WITH FENTANYL AND VERSED. ON LEVOPHED DRIP. CURRENT LABS INCLUDE WBC 8.7, H/H 11.8/35.9, CHEM 7 PENDING. (+) COVID. ON SOLU-MEDROL, ZOSYN AND PROTONIX IV. CARDIO, NEPHRO, ID AND PULMO CONSULTS IN PLACE. DC PLAN PENDING ON PATIENT'S RESPONSE TO TREATMENT. Addendum: 12/21/19 at 0911 by Kayleigh Silva CM STILL IN ICU, ORALLY INTUBATED TO VENT FIO2 50%, O2 SAT 98%. CURRENT LABS INCLUDE WBC 9.4, H/H 12.3/37.5, NA/K 156/3.7, BUN/CREA 53/1.7. SEDATED WITH FENTANYL AND VERSED DRIPS. ON LEVOPHED. ON ZOSYN. CURRENT CXR SHOWED MILD PATCHY OPACITIES, MILDLY INCREASED FROM PRIOR EXAM. BLOOD AND URINE CS NO GROWTH. SEEN BY ID, NEPHRO, PULMO AND CARDIO CONSULTS. DC PLAN PENDING ON PATIENT'S RESPONSE TO TREATMENT. Addendum: 12/22/19 at 1541 by Kayleigh Silva CM STILL IN ICU, ORALLY INTUBATED TO VENT, FIO2 50%, O2 SAT 93%. SEDATED WITH FENTANYL AND VERSED DRIPS. ON LEVOPHED DRIP. NA/K 156/4.1, BUN/CREA 52/1.8 AND MAG 2.5, ALB 2.0. CURRENT CXR SHOWED MULTIFOCAL PNEUMONIA INCLUDING POSSIBLE COVID 19. ON ZOSYN AND PROTONIX IV. CARDIO, PULMO, ID AND NEPHRO IN PLACE. DC PLAN PENDING ON PATIENT'S RESPONSE TO TREATMENT. Addendum: 12/23/19 at 1139 by Kayleigh Silva SILL IN ICU. ORALLY INTUBATED TO VENT, FIO2 50%, O2 SAT 97%. SEDATED WITH FENTANYL AND VERSED DRIPS. ON LEVOPHED DRIP. CURRENT LABS INCLUDE WBC 16.2, H/H 10.3/31.4, NA/K 150/4.2, BUN/CREA 53/2.2 AND LACTIC ACID 2.2. CURRENT CXR SHOWED NO SIGNIFICANT INTERVAL CHANGE OF PATCHY AIRSPACE EDEMA VS INFILTRATE. ON ZOSYN AND VANCOMYCIN. SEEN BY PULMO - CONTINUE MEDICAL VENTILATION. SEEN BY ID - CONTINUE CURRENT ANTIBIOTIC COVERAGE, REPEAT TRACHEAL ASPIRATE, GRAM STAIN AND CS. BLOOD, URINE AND SPUTUM CS PENDING. DC PLAN PENDING ON PATIENT'S RESPONSE TO TREATMENT.
--- NOTE | 2019-12-14 09:35 | NUR ---
ADMINISTERED MORNING MEDICATIONS. NO GASTRIC RESIDUALS. CRHISTA PICC LINE IS ASYMPTOMATIC, PATENT AND INTACT. PT HAS FEVER OF 102.5. ADMINISTERED PRN TYLENOL 650 MG. LUNG SOUNDS ARE COARSE THROUGHOUT. CAP REFILL LESS THAN 3 SECONDS. +2 RADIAL PULSES. S1S2 HEARD. ACTIVE BOWEL SOUNDS. WILL CONTINUE TO MONITOR.
--- NOTE | 2019-12-14 10:08 | NUR ---
STARTED VERSED 1MG/HR. TITRATING PROPOFOL DOWN. TEMPERATURE 101.9 AXILLARY. WILL CONTINUE TO MONITOR.
[2019-12-14] MEDS: AZITHROMYCIN 250 MG in DEXTROSE 5% 250 ML IV SCH (11:16)
[2019-12-14] MEDS ORDERED: POTASSIUM CHLORIDE 10 MEQ TABER PO SCH (11:30)
--- NOTE | 2019-12-14 11:45 | NUR ---
DR. MONTES DE OCA AT BEDSIDE CHANGED VENT SETTINGS TO AC 30 VT400 PEEP 18 AND KEEP O2 SAT ABOVE 90% AND DO ABG AT 1500
--- NOTE | 2019-12-14 11:50 | NUR ---
DR MONTES DE OCA AT PT'S WINDOW. WENT OVER POC W/ DOCTOR. WILL INCREASE VERSED TO 4 MG/HR AND FENTANYL TO 1.5 MCG/KG/HR TO ACHIEVE RASS SCORE OF -4. RT AT BEDSIDE. NEW VENT SETTINGS ARE ACVC VT 400 RR 30 PEEP 18 AND VVD698% TO KEEP O2 SAT ABOVE 90%.
[2019-12-14] MEDS ORDERED: KCL 20 MEQ/WATER INJ PREMIX 100 ML IV ONE (12:25)
[2019-12-14] MEDS: FUROSEMIDE 20 MG/2 ML VIAL IVP SCH ×2 (12:30→21:18)
[2019-12-14] MEDS ORDERED: POTASSIUM CHLORIDE 20% 40 MEQ/15 ML UDC NG SCH (12:52)
--- NOTE | 2019-12-14 13:25 | NUR ---
NGT OF RIGHT NARE IN PLACE AND SECURE. PT HAS NO GASTRIC RESIDUALS. STARTED TUBE FEEDING GLUCERNA 1.2 AT RATE OF 30ML/HR W/ FWF AT 100 ML Q4HR. WILL CONTINUE TO MONITOR.
--- NOTE | 2019-12-14 13:36 | NUR ---
12/14/19 RD INITIAL ASSESSMENT COMPLETED PLEASE REFER TO NUTRITION ASSESSMENT UNDER CARE ACTIVITY FOR ESTIMATED NUTRITIONAL NEEDS. 1. CONTINUE GLUCERNA 1.2 @ 30 ML/HR X 24 HR -THIS WILL PROVIDE 720 ML OF VOLUME, 864 KCAL AND 43 GM OF PROTEIN 2. CONTINUE FREE WATER FLUSH OF 100 ML Q4H 3. IF/WHEN PATIENT IS MEDICALLY STABLE CONSIDER SWITCHING FORMULA TO VITAL 1.2 @ 60 ML/HR X 24 HR -THIS WILL PROVIDE 1440 ML OF VOLUME, 1728 KCAL AND 108 GM OF PROTEIN WHICH MEETS 100% OF ESTIMATED NEEDS 4. IF PATIENT IS EXTUBATED CONSIDER ORDERING SWALLOW EVALUATION FOR A PO DIET WHEN MEDICALLY STABLE 5. RD TO FOLLOW-UP 2-3 DAYS, HIGH RISK SERGIO BEAN RD
[2019-12-14] MEDS ORDERED: PROPOFOL 1000 MG/100 ML PREMIX 100 ML IV PRN ×2 (14:00→16:40)
[2019-12-14] MEDS: fentaNYL 1 MG in NACL 0.9% 80 ML IV PRN (14:26)
--- NOTE | 2019-12-14 14:43 | NUR ---
abg drawn on lb without incident and results were read back to abidali and to titrate fio2 to keep o2 sat 92% no more vent changes rn dolly notified of changes made
[2019-12-14] MEDS: MIDAZOLAM MDV 100 MG in NACL 0.9% 80 ML IV PRN (15:01)
[2019-12-14] MEDS ORDERED: ACETAMINOPHEN EXTRA STRENGTH 500 MG TAB ONE (15:58)
--- NOTE | 2019-12-14 16:00 | NUR ---
BG 129. NO INSULIN NEEDED. FEVER 102.5 AXILLARY. WILL ADMINISTER 650 MG TYLENOL PO. VAP ORAL CARE AND LINEN CHANGE COMPLETED. WILL CONTINUE TO MONITOR.
[2019-12-14] MEDS: NOREPINEPHRINE 8 MG in DEXTROSE 5% 250 ML IV PRN (16:31)
--- NOTE | 2019-12-14 18:08 | NUR ---
PT NOT AROUSABLE BY TOUCH. EYES ARE PERRL, 2MM. GCS=3. PT IS HAS ETT 7.5CM 26 AT THE LIP W/ VENT SETTINGS OF A/C VC VT 400 RATE 30 FIO2 60% PEEP 18. PT IS TACHYPNEIC USING ABDOMINAL MUSCLES. SPO2 IS 96-100%. PT HAS TEMPERATURE OF 101.5 AXILLARY. HAS MOIST SKIN AROUND THE FACE. PT SEDATED W/ FENTANYL AT 1.5MCG/KG/MIN (10.8ML/HR) AND VERSED AT 11MG/HR (11ML/HR) TO MAINTAIN RASS OF -4. PT IS ALSO ON LEVOPHED DRIP AT 3 MCG/MIN (5.62ML/HR) TO MAINTAIN SBP ABOVE 90. PT HAS TUBE FEEDING GLUCERNA 1.2 RUNNING AT 30ML/HR W/ 100 ML FWF Q4HR. BED IS LOCKED, W/ SAFETY MEASURES IN PLACE. WILL CONTINUE TO MONITOR.
--- NOTE | 2019-12-14 19:18 | NUR ---
GAVE REPORT TO CLUBHOUSE ATTENDANT NURSE TO ENSURE CONTINUITY OF CARE FOR PT.
--- NOTE | 2019-12-14 19:30 | NUR ---
RECEIVED PT FROM DAY SHIFT RN, PT DRY WEIGHT 90 KG RASS -4, INFUSING LEVOPHED 3 MCG/KG, VERSED 11 ML/HR FENTANYL 1.5 MCG/KG/HR. PT HAS RIGHT PICC LINE DOUBLE LUMEN RIGHT UPPER ARM. PT PERRL 3MM, PT ETT TO VENT AC/VC FIO2 60 RR 30 VT 400 PEEP 18. PT HAS DIMINISHED LNG SOUNDS, S1 ANDS S2 HEARD, PULSES PALPABLE UPPER AND LOWER EXTREMITIES, PT HAS ASCENCIO CATHETER IN PLACE DRAINING CLEAR YELLOW URINE, PT ON TUBE FEEDING NGT RIGHT NARE, GLUCERNA 1.2 30 ML/HR FREE WATER FLUSH 100 ML Q4HR. HOB 30 DEGREES PER PROTOCOL, BED IN LOWEST POSITION, WITH SAFETY PROTOCOLS IN PLACE WILL CONTINUE TO MONITOR
[2019-12-14] MEDS: ACETAMINOPHEN 650 MG SUPP RC PRN (21:46)
--- NOTE | 2019-12-14 22:59 | NUR ---
PT DISPLAYING USE OF ACCESSORY MUSCLES TO BREATH WITH FACIAL GRIMACING LOW 02 SATURATION GAVE 1 DOSE 2MG ATIVAN TO HELP RELAX PT
--- NOTE | 2019-12-14 23:11 | NUR ---
PT STILL DISPLAYS USE OF ACCESSORY MUSCLES, LOW 02 SATURATION AROUND 85% PT BODY TENSE GAVE 1 DOSE PRN 2MG ATIVAN TO HELP PT RELAX
--- NOTE | 2019-12-14 23:25 | NUR ---
PT STOPPED USING ACCESSORY MUSCLE TO BREATH, PT BODY HAS RELAXED AND 02 SATURATION HAS IMPROVED TO 95%
[2019-12-15] VITALS (106 sets, daily range): BP systolic 10–205; BP diastolic 26–114
[2019-12-15] MEDS ORDERED: PIPERACILLIN/TAZOBACTAM 2.25 GM VIAL IV ONE ×2 (00:13→04:32)
[2019-12-15] MEDS: fentaNYL 1 MG in NACL 0.9% 80 ML IV PRN ×3 (00:33→19:55)
[2019-12-15] MEDS: PIPERACILLIN/TAZOBACTAM 2.25 GM in DEXTROSE 5% 50 ML IV SCH ×5 (00:34→23:07)
[2019-12-15] MEDS: MIDAZOLAM MDV 100 MG in NACL 0.9% 80 ML IV PRN ×3 (00:41→20:50)
[2019-12-15] MEDS: NACL 0.9% 1,000 ML IV SCH ×2 (01:31→12:00)
--- NOTE | 2019-12-15 03:17 | NUR ---
NOTIFIED RESPIRATORY OF PTS LOW SPO2 @ THIS TIME. SATING BETWEEN 70-88 ON PRESCRIBED VENT SETTINGS. WILL FOLLOW-UP
[2019-12-15] MEDS: LORazepam 2 MG/ML VIAL IM/IVP PRN ×2 (03:30→04:31)
--- NOTE | 2019-12-15 03:45 | NUR ---
PT WITH RIGID EXTREMITIES NOTED, HYPERTENSIVE EPISODE WITH DECREASED SPO2. PRN ATIVAN ADMINISTERED ORDERED WITHOUT INCIDENT. SAFETY PRECAUTIONS REMAIN IN PLACE. BED LOW AND LOCKED. WILL FOLLOW UP.
[2019-12-15 06:09] LABS: BASOPHILS % (AUTO) 0.3 % (0.0-2.0); EOSINOPHILS % (AUTO) 0.3 % (0.0-4.0); HEMATOCRIT 41.6 % (36-52); HEMOGLOBIN 13.9 g/dL (12.0-18.0); LYMPHOCYTES # (AUTO) 0.9 K/uL (2.0-11.5); LYMPHOCYTES % (AUTO) 10.5 % (20.5-51.1); MEAN CORPUSCULAR HEMOGLOBIN 30 pg (27-31); MEAN CORPUSCULAR HGB CONC 33 g/dL (33-37); MONOCYTES # (AUTO) 0.2 K/uL (0.8-1.0); MONOCYTES % (AUTO) 1.9 % (1.7-9.3); NEUTROPHILS # (AUTO) 7.4 K/uL (1.8-7.7); PLATELET COUNT (AUTO) 200 K/uL (140-450); RED BLOOD CELL COUNT(AUTO) 4.57 MIL/uL (4.20-6.10); RED CELL DISTRIBUTION WIDTH 13.7 % (11.6-13.7); WHITE BLOOD COUNT (AUTO) 8.5 K/uL (4.8-10.8)
[2019-12-15] MEDS: BLOOD GLUCOSE MONITORING 1 DEV DEV FS SCH ×4 (06:35→20:25)
[2019-12-15 06:45] LABS: ALBUMIN 2.5 g/dL (3.4-5.0); ANION GAP 13.7 (8-16); CARBON DIOXIDE 27.1 mmol/L (21-32); PHOSPHORUS 3.3 mg/dL (2.5-4.9); POTASSIUM 3.8 mmol/L (3.5-5.1); TOTAL BILIRUBIN 0.6 mg/dL (0.0-1.0)
--- NOTE | 2019-12-15 06:50 | NUR ---
PHONE CALL FROM SOLITARIO HIGUERA; PTS NOK/DAUGHTER. UPDATED ON PTS PRESENT CONDITION.QUESTIONS ANSWERED.
--- NOTE | 2019-12-15 06:50 | NUR ---
APAP SUPPOSITORY ADMINISTERED @ THIS TIME FOR FEVER OF 104. WILL ENDORSE TO FARIDEH ESPINOZA.
--- NOTE | 2019-12-15 07:15 | NUR ---
REPORT GIVEN TO LAEXIS JARQUIN FOR CONTINUITY OF CARE.
--- NOTE | 2019-12-15 07:16 | NUR ---
RECEIVED BEDSIDE REPORT FROM DIRECTOR OF DEVELOPMENT AND MARKETING RN, PATIENT IS SEDATED, RASS -4, TEMP 103.4F, FLACC 0, ETT TO VENT WITH AC FIO2 70, VT 400, R 30, PEEP 18, NO S/S OF DISTRESS, DIMINISHED LUNG SOUNDS EYAD. O2 SAT 99%, ST ON METALLURGICAL INSPECTOR, SOFT ABDOMEN WITH ACTIVE BOWEL SOUNDS, NGT TO RIGHT NARES, POSITIVE PLACEMENT, RUNNING GLUCERNA 1.2 AT 30 ML/HR, TOLERATED WELL, NO RESIDUALS NOTED, ASCENCIO CATHETER IN PLACE WITH CLEAR YELLOW URINE VIA GRAVITY, SKIN IS WARM AND DRY TO TOUCH, NO OPEN WOUND NOTED, UNABLE TO MOVE ALL EXTREMENESS DUE TO SEDATION, PICC LINE TO RIGHT UPPER ARM, PATENT, RUNNING VERSED AT 11 MG/HR, FENTANYL AT 1.5 MCG/KG/HR, DRY WEIGHT USING ON PUMP IS 90 KG, AND LEVOPHED AT 3 MCG/MIN, AND NS AT 40 ML/HR, HOB ELEVATED 30 DEGREES, SAFETY MEASURES AND SEIZURE PRECAUTION IN PLACE, WILL CONTINUE TO MONITOR. Addendum: 12/15/19 at 0942 by Zuri Tejada RN REMOVED RESTRAIN ON EYAD. WRIST. PT IS SEDATED.
[2019-12-15] MEDS: ACETAMINOPHEN 650 MG SUPP RC PRN ×2 (07:20→14:51)
[2019-12-15 07:21] LABS: CKMB RELATIVE INDEX 0.8 (0.0-2.5); CREATINE KINASE MB 3.7 ng/mL (0-3.6)
--- NOTE | 2019-12-15 07:43 | NUR ---
RECEIVED ON A [employer] R860 VENTILATOR PLUGGED INTO RED OUTLET TOLERATING WELL WITHOUT ADVERSE REACTIONS NOTED TO AN ENDOTRACHEAL TUBE #7.5 SECURED WITH AN ANCHOR FAST AMBU BAG AT BEDSIDE GOOD CHEST RISE
[2019-12-15] MEDS: PANTOPRAZOLE 40 MG INJ VIAL IVP SCH (08:15)
[2019-12-15] MEDS: FUROSEMIDE 20 MG/2 ML VIAL IVP SCH (08:16)
[2019-12-15] MEDS: ASCORBIC ACID 500 MG TAB PO SCH (08:16)
[2019-12-15] MEDS: HYDROXYCHLOROQUINE 200 MG TAB PO SCH ×2 (08:16→20:18)
[2019-12-15] MEDS: ZINC SULF 220 MG CAP PO SCH (08:17)
[2019-12-15] MEDS: OLANZapine 2.5 MG TAB PO SCH (08:17)
--- NOTE | 2019-12-15 08:30 | NUR ---
SCHEDULED MEDICATION GIVEN, PT TOLERATED WELL.
[2019-12-15] MEDS ORDERED: BUMETANIDE 1 MG/4 ML VIAL IV SCH (10:04)
--- NOTE | 2019-12-15 10:19 | NUR ---
DR. MONTES DE OCA CAME IN TO SEE PATIENT AT BEDSIDE, UPDATED PATIENT'S CONDITION, WILL FOLLOW NEW ORDERS.
--- NOTE | 2019-12-15 10:25 | NUR ---
PATIENT PRESENTING WITH UNCONTROLLED ASCENDING PEAK PRESSURE TO 55-60 CHANGED VENTILATOR MODE TO PRESSURE CONTROL NOTED GOOD CHEST RISE AND AERATION THROUGHOUT BILATERAL LUNG FLORIAN REVIEWED CXR DATED 12/15/2019 "ENDOTRACHEAL TUBE 7.2cm ABOVE AGGIE" ETT CURRENTLY AT 25cm TEETH/GUM LINE ADVANCED ETT TO 27cm TEETH/GUM DR. CHIKA NUÑEZ NOTIFIED MD TO ORDER STAT CXR FOR ETT PLACE RECORDS MANAGEMENT COORDINATOR ADVISE MD OF CHANGE OF MODE RECORDS MANAGEMENT COORDINATOR TO OBTAIN ORDERED STAT ABG AT A LATER TIME
[2019-12-15] MEDS: AZITHROMYCIN 250 MG in DEXTROSE 5% 250 ML IV SCH (11:49)
--- NOTE | 2019-12-15 12:00 | NUR ---
BREATHING USING STOMACH MUSCLES, HR WENT UP TO 130-140, RT AWARE, DR. SUAREZ NOTIFIED, CONTINUE MONITOR AT THIS TIME.
--- NOTE | 2019-12-15 13:13 | NUR ---
CALLED DR. JAMAR MONTES DE OCA [phone] QUAN CAPELLAN, BRICKLAYER'S ASSISTANT SPOKE TO MD TO REVIEW ABG SAMPLE REPORT, CHANGED VENTILATOR SETTINGS TO PC DUE TO INCREASED PEAK PRESSURE, CXR AND PATIENT STATUS PER FOREMENTIONED MD "DO NOT MAKE ANY CHANGES TO VENTILATOR LEAVE HIM THE WAY HE IS"
--- NOTE | 2019-12-15 14:05 | NUR ---
SEDATED GOOD CHEST RISE AIRWAY PATENT
[2019-12-15] MEDS: NOREPINEPHRINE 8 MG in DEXTROSE 5% 250 ML IV PRN (14:47)
--- NOTE | 2019-12-15 15:00 | NUR ---
TEMP WENT UP TO 104.5F, DR. NUÑEZ MADE AWARE.
--- NOTE | 2019-12-15 15:50 | NUR ---
SEDATED RESTING WELL GOOD CHEST RISE
--- NOTE | 2019-12-15 16:00 | NUR ---
NO S/S OF DISTRESS, PM CARE AND ASCENCIO CATHETER CARE DONE, ORAL CARE PROVIDED, POSITION CHANGED FOR OFF LOAD PRESSURE.
[2019-12-15 16:42] LABS: APPEARANCE,URINE CLEAR (CLEAR); BILIRUBIN,URINE NEGATIVE (NEGATIVE); BLOOD, URINE 3+ (NEGATIVE); COLOR,URINE YELLOW (YELLOW); LEUKOCYTE ESTERASE ,URINE NEGATIVE (NEGATIVE); NITRITE, URINE NEGATIVE (NEGATIVE); PH,URINE 5.5 (5.0-9.0); UGLUCOSE NEGATIVE (NEGATIVE)
[2019-12-15] MEDS ORDERED: FUROSEMIDE 40 MG/4 ML VIAL IVP SCH (17:00)
[2019-12-15] MEDS ORDERED: KETOROLAC 15 MG/ML VIAL IVP SCH (17:00)
[2019-12-15 17:01] LABS: RBC,URINE 20-50 /HPF (0-5); WBC,URINE 0-5 /HPF (0-5)
[2019-12-15 17:02] LABS: COARSE GRANULAR CASTS,URINE 0-10 /LPF (None Seen)
--- NOTE | 2019-12-15 17:35 | NUR ---
SEDATED STABLE GOOD CHEST RISE AIRWAY PATENT DIFFUSED FAINT INSP WHEEZE BILATERAL
--- NOTE | 2019-12-15 18:00 | NUR ---
PATIENT IS RESTING IN BED, NO S/S OF DISTRESS AT THIS TIME, VSS, FLACC 0, TEMP WENT DOWN TO 99.8, POSITION CHANGED FOR OFF LOAD PRESSURE.
--- NOTE | 2019-12-15 19:28 | NUR ---
RECEIVED INTUBATED PT WITH A 7.5 ETT SECURED @27 TEETH/GUM ON VENT. SETTINGS AC/PC Pinsp 22, R30, PEEP 18 AND FIO2 80%. PT SUCTIONED OBTAINED SMALL AMOUNT OF THICK BROWN SECRETIONS, AIRWAY IS PATENT AND SECURE. PT SEDATED NOT IN ANY DISTRESS AT THIS TIME. VENT IS PLUGGED INTO A RED OUTLET WITH ALARMS ON AND FUNCTIONING. WILL CONTINUE TO MONITOR.
--- NOTE | 2019-12-15 19:30 | NUR ---
ASSUMED CARE OF PT.INITIAL ASSESSMENT COMPLETED.PT SEDATED.SR ON MONITOR.ORALLY INTUBATED AC/PC FIO2 80%.WITH PICC LINE TO CHRISTA INTACT WITH GOOD BLOOD RETURN TO BOTH PORTS INFUSING ORDERED IVF;LEVOPHED 8MG IN 250ML D5W AT 3 MCG/MIN(5.62 ML/HR),FENTANYL DRIP 15MCG/KG/HR (10.8ML/HR) AND VERSED DRIP 11MCG/HR(11ML/HR).WITH NGT TO RT NARES.ON CONTINUOUS NGT FEEDING GLUCERNA 1.2 AT 30ML/HR WITH 100ML Q4HRS WATER FLUSH; 30ML RESIDUALS NOTED.ABD SOFT NON TENDER.NO BM NOTED AT THIS TIME.WITH ASCENCIO CATHETER TO BSD DRAINING SMALL AMT OF YELLOW URINE.ALL EXTREMITIES FLACCID/GENERALIZED WEAKNESS.FLACC O.SKIN INTACT
[2019-12-15] MEDS ORDERED: ACETAMINOPHEN 650 MG SUPP RC PRN (19:45)
--- NOTE | 2019-12-15 20:00 | NUR ---
PT ON PROTONIX FOR GI PROPHYLAXIS AND HEPARIN FOR DVT PROPHYLAXIS.REPOSITIONED.
[2019-12-15] MEDS: FUROSEMIDE 40 MG/4 ML VIAL IVP SCH (20:18)
[2019-12-15] MEDS: methylPREDNISolone SS 40 MG/ML VIAL IVP SCH (20:18)
[2019-12-15] MEDS: INSULIN LISPRO SLIDING SCALE 100 UNITS/ML VIAL SUBQ PRN (20:46)
--- NOTE | 2019-12-15 22:25 | NUR ---
BP 78/55; LEVOPHED INCREASED TO 5MCG/MIN PER PROTOCOL. PTS CONDITION REMAINS UNCHANGED.REPOSITIONED.FLACC 0
[2019-12-16] VITALS (101 sets, daily range): BP systolic 79–146; BP diastolic 52–92
--- NOTE | 2019-12-16 00:42 | NUR ---
NGT FEEDING COMPLETED; BAG CHANGED.NO RESIDUAL NOTED.PT AFEBRILE AT THIS TIME.REPOSITIONED
--- NOTE | 2019-12-16 02:00 | NUR ---
CONDITION REMAINS UNCHANGED.STILL ON LEVOPHED; FENTANYL AND VERSED DRIPS.
--- NOTE | 2019-12-16 04:00 | NUR ---
MORNING CARE DONE.ALL LINENS CHANGED.NO BM THIS SHIFT.PT TOLERATING NGT FEEDING; NO RESIDUAL NOTED.FLACC 0
[2019-12-16] MEDS: PIPERACILLIN/TAZOBACTAM 2.25 GM in DEXTROSE 5% 50 ML IV SCH ×3 (05:06→17:07)
--- NOTE | 2019-12-16 05:11 | NUR ---
FIO2 TITRATED TO 70%. VENT CHECK COMPLETED. PT REMAINS ON DOCUMENTED VENT SETTINGS. PT NOT IN ANY DISTRESS AT THIS TIME. PT SUCTIONED OBTAINED SMALL AMOUNT OF BLOODY SECRETIONS, AIRWAY IS PATENT AND SECURE. VENT ALARMS REMAIN ON AND FUNCTIONING.
[2019-12-16] MEDS: fentaNYL 1 MG in NACL 0.9% 80 ML IV PRN ×2 (05:15→15:15)
[2019-12-16] MEDS: MIDAZOLAM MDV 100 MG in NACL 0.9% 80 ML IV PRN ×2 (05:17→15:17)
--- NOTE | 2019-12-16 05:46 | NUR ---
PHONE CALL FROM SOLITARIO HIGUERA ,PTS NOK/DAUGHTER; UPDATED ON PTS PRESENT CONDITION.AFEBRILE THIS SHIFT.QUESTIONS ANSWERED.
--- NOTE | 2019-12-16 06:00 | NUR ---
DR NUÑEZ IN THE UNIT.UPDATED ON PTS PRESENT CONDITION.MADE AWARE THAT AT 0500 RT SUCTIONED PT; BLOOD TINGED SECRETIONS NOTED ON ETT.NO NEW ORDER
[2019-12-16 06:38] LABS: BASOPHILS % (AUTO) 0.1 % (0.0-2.0); HEMATOCRIT 39.8 % (36-52); HEMOGLOBIN 13.3 g/dL (12.0-18.0); LYMPHOCYTES # (AUTO) 0.4 K/uL (2.0-11.5); LYMPHOCYTES % (AUTO) 5.2 % (20.5-51.1); MEAN CORPUSCULAR HEMOGLOBIN 30 pg (27-31); MEAN CORPUSCULAR HGB CONC 33 g/dL (33-37); MEAN CORPUSCULAR VOLUME 90.8 fL (80-94); MONOCYTES # (AUTO) 0.2 K/uL (0.8-1.0); MONOCYTES % (AUTO) 2.3 % (1.7-9.3); NEUTROPHILS # (AUTO) 7.8 K/uL (1.8-7.7); NEUTROPHILS % (AUTO) 92.4 % (42.2-75.2); PLATELET COUNT (AUTO) 194 K/uL (140-450); RED BLOOD CELL COUNT(AUTO) 4.39 MIL/uL (4.20-6.10); RED CELL DISTRIBUTION WIDTH 13.9 % (11.6-13.7); WHITE BLOOD COUNT (AUTO) 8.5 K/uL (4.8-10.8)
--- NOTE | 2019-12-16 07:09 | NUR ---
REPORT GIVEN TO CONNER ESPINOZA FOR CONTINUITY OF CARE
[2019-12-16] MEDS: BLOOD GLUCOSE MONITORING 1 DEV DEV FS SCH ×4 (07:30→20:45)
--- NOTE | 2019-12-16 07:30 | NUR ---
RECEIVED CHANGE OF SHIFT REPORT AT BEDSIDE FROM RUNNER WORKER NURSE. PT IS CURRENTLY SEDATED W/ FENTANYL 1.5 MCG/KG/HR (10.8ML/HR) AND VERSED 11MG/HR (11ML/HR) FOR RASS -4. DRY WEIGHT 90KG. PT IS NOT AROUSABLE TO LIGHT TOUCH. EYES PERRL 2MM. GCS=3. PT HAS +2 RADIAL PULSES, CAP REFILL <3 SECONDS. LUNG SOUNDS ARE CLEAR, BUT DIMINISHED THROUGHOUT. SPO2 >96%. PT IS ETT TO VENT. ETT IS 7.5 CM TAPED 26 AT LIP. VENT SETTINGS ARE A/AUTO TECHNICIAN 30 FIO2 70% PEEP 18 [id number]. EQUAL RISE AND FALL OF CHEST OBSERVED. PT HAS RIGHT NARE NG TUBE W/ GLUCERNA 1.2 RUNNING AT 30ML/HR W/ FWF 100 ML Q4HR. 20ML GASTRIC RESIDUAL. PLACEMENT OF NG TUBE CONFIRMED VIA AIR AUSCULTATION. BOWEL SOUNDS HEARD. PT HAS ASCENCIO CATHETER. PT HAS CHRISTA PICC DOUBLE LUMEN THAT IS ASYMPTOMATIC, PATENT AND INTACT. LEVOPHED RUNNING AT 5 MCG/MIN (9.37 ML/HR) TO KEEP SBP ABOVE 90. BED IS LOCKED W/ HOB 30 DEGREES. CALL LIGHT WITHIN REACH. ROOM FREE FROM CLUTTER. WILL CONTINUE TO MONITOR.
--- NOTE | 2019-12-16 07:55 | NUR ---
RECEIVED ON A [employer] R860 VENTILATOR PLUGGED INTO RED OUTLET TOLERATING WELL WITHOUT ADVERSE REACTIONS NOTED TO AN ENDOTRACHEAL TUBE #7.5 SECURED AT 27cm WITH AN ANCHOR FAST CUFF PRESSURE CHECKED NOTED AMBU BAG AT BEDSIDE LOC SEDATED BREATH SOUNDS DECREASED BILATERAL WITH GOOD CHEST RISE AIRWAY PATENT
[2019-12-16] MEDS: ASCORBIC ACID 500 MG TAB PO SCH (08:21)
[2019-12-16] MEDS: ZINC SULF 220 MG CAP PO SCH (08:21)
[2019-12-16] MEDS: HYDROXYCHLOROQUINE 200 MG TAB PO SCH (08:21)
[2019-12-16] MEDS: OLANZapine 2.5 MG TAB PO SCH (08:21)
[2019-12-16] MEDS: PANTOPRAZOLE 40 MG INJ VIAL IVP SCH (08:22)
[2019-12-16] MEDS: FUROSEMIDE 40 MG/4 ML VIAL IVP SCH ×2 (08:22→16:24)
[2019-12-16] MEDS: methylPREDNISolone SS 40 MG/ML VIAL IVP SCH ×2 (08:22→20:45)
[2019-12-16 08:23] LABS: ASPARTATE AMINOTRANSFERASE 99 U/L (15-37); CARBON DIOXIDE 25.9 mmol/L (21-32); CHLORIDE 103 mmol/L (98-107); CREATININE 2.3 mg/dL (0.6-1.3); GFR ARICAN-AMERICAN 37 mL/min (>90); GLUCOSE 221 mg/dL (74-106); MAGNESIUM 2.2 mg/dL (1.8-2.4); PHOSPHORUS 3.7 mg/dL (2.5-4.9); POTASSIUM 3.9 mmol/L (3.5-5.1); SODIUM SERUM 141 mmol/L (136-145); TOTAL BILIRUBIN 0.6 mg/dL (0.0-1.0); UREA NITROGEN, BLOOD 34 mg/dL (7-18)
[2019-12-16 08:51] LABS: LACTATE DEHYDROGENASE 605 U/L (85-227)
[2019-12-16] MEDS ORDERED: FUROSEMIDE 20 MG/2 ML VIAL IVP SCH (08:55)
--- NOTE | 2019-12-16 09:25 | NUR ---
DR. JAMAR NUÑEZ RESPIRATORY THERAPIST AND RN'S AT BEDSIDE FOR POSITION PRONING
--- NOTE | 2019-12-16 09:25 | NUR ---
SEDATED NO EVIDENCE OF PULMONARY DISTRESS GOOD CHEST RISE AND AERATION THROUGHOUT BILATERAL LUNG FLORIAN AIRWAY PATENT
--- NOTE | 2019-12-16 09:45 | NUR ---
PER DR. SHERITA MONTES DE OCA STAT ABG ORDERED AT [address] CHIKA NUÑEZ OK TO PROCESS AT 4 HOURS POST PATIENT PRONING DR NUÑEZ AWARE
--- NOTE | 2019-12-16 09:45 | NUR ---
DR. MONTES DE OCA, RESIDENTS, RT, AND NURSES POSITIONED PT TO PRONE POSITION. PT IS STABLE AT THIS TIME. WILL CONTINUE TO MONITOR Addendum: 12/16/19 at 1607 by Gilbert Enriquez RN RN PT TUBE FEEDING WAS DECREASED FROM 30 ML/HR TO 10ML/HR PER DR. MONTES DE OCA. FWF STILL AT 100ML Q4HR.
--- NOTE | 2019-12-16 09:45 | NUR ---
PATIENT HEAD TURNED TO RIGHT ENDOTRACHEAL TUBE CHECKED FOR EXCESS BEND OR KINK
[2019-12-16] MEDS: INSULIN LISPRO SLIDING SCALE 100 UNITS/ML VIAL SUBQ PRN ×2 (10:02→20:50)
[2019-12-16] MEDS: AZITHROMYCIN 250 MG in DEXTROSE 5% 250 ML IV SCH (10:10)
--- NOTE | 2019-12-16 10:15 | NUR ---
PT HAD BRADYCARDIC EVENT OF 46 BPM. SINUS RHYTHM. DOCTOR STORMY AND DOCTOR JOAQUIN MADE AWARE. NO CHANGE IN ORDERS. WILL CONTINUE TO MONITOR.
--- NOTE | 2019-12-16 11:58 | NUR ---
SEDATED TOLERATING PRONE POSITION WELL GOOD CHEST RISE
--- NOTE | 2019-12-16 12:00 | NUR ---
PT TOLERATING PRONE POSITION WELL. VSS. SPO2 ABOVE 96%. SINUS RHYTHM ON MONITOR. WILL CONTINUE TO MONITOR
--- NOTE | 2019-12-16 14:20 | NUR ---
TURNED PT HEAD W/ ASSISTANCE FROM RT AND ANOTHER RN FROM RIGHT TO LEFT. PT ARMS WERE REPOSITIONED WELL. PT STILL IN PRONE POSITION. PT SUCTIONING WAS NEEDED OF THE MOUTH AND NARES. PT OTHERWISE TOLERATED REPOSITION OF HEAD WELL.
--- NOTE | 2019-12-16 14:20 | NUR ---
MOVED ENDOTRACHEAL TUBE TO RIGHT SIDE OF MOUTH NO EVIDENCE OF TUBE BEND OR KINK
--- NOTE | 2019-12-16 14:28 | NUR ---
12/16/19 RD FOLLOW UP COMPLETED PLEASE REFER TO NUTRITION ASSESSMENT UNDER CARE ACTIVITY FOR ESTIMATED NUTRITIONAL NEEDS. 1. CONTINUE GLUCERNA 1.2 @10 ML/HR DURING PRONE POSITION 2. CONTINUE FREE WATER FLUSH OF 100 ML Q4H 3. IF/WHEN PATIENT IS MEDICALLY STABLE CONSIDER SWITCHING FORMULA TO VITAL 1.2 @ 60 ML/HR X 24 HR. START AT 10 ML/HR AND INCREASE BY 10 ML/HR Q12H -THIS WILL PROVIDE 1440 ML OF VOLUME, 1728 KCAL AND 108 GM OF PROTEIN WHICH MEETS 100% OF ESTIMATED NEEDS 4. IF PATIENT IS EXTUBATED CONSIDER ORDERING SWALLOW EVALUATION FOR A PO DIET WHEN MEDICALLY STABLE 5. RD TO FOLLOW-UP 2-3 DAYS, HIGH RISK SERGIO BEAN RD
--- NOTE | 2019-12-16 14:40 | NUR ---
CALLED DR. JAMAR MONTES DE OCA [phone] TO REVIEW AB SAMPLE REPORT
--- NOTE | 2019-12-16 14:41 | NUR ---
CALL BACK FROM DR. JAMAR MONTES DE OCA REVIEWED ABG SAMPLE REPORT "PLEASED WITH INCREASE IN p02 OF 127.4" CONTINUE WITH PRONING THROUGHOUT NOCS ORIGINATING PRONING TIME 0945 AFTER 16 HOURS IF PHYSICAL PATIENT ADJUSTMENT (IE: HEAD TURNING, ARM REPOSITIONING) REQUIRED DRAW ABG 1 HOUR THEREAFTER
--- NOTE | 2019-12-16 14:42 | NUR ---
STACEY MONTES DE OCA PER ABG SAMPLE REPORT pO2 OF 127.4 TITRATE FIO2 TO KEEP SATURATION GREATER THAN 92%
--- NOTE | 2019-12-16 15:55 | NUR ---
TOLERATING PRONE POSITION WELL WITHOUT DISTRESS NOTED DECREASED I-TIME TO 0.60 TO INCREASE EXPIRATORY RATIO GREATER THAN OR EQUAL TO 2.0 SATURATION 100% ON FIO2 OF 70% SPINAL SURGEON TO ADVISE RN OF DECREASE OF FIO2 TO 50%
--- NOTE | 2019-12-16 16:15 | NUR ---
RT AT BEDSIDE. INFORMED NURSE OF CHANGE IN FIO2 FROM 70% TO 50%. PT CURRENTLY SATURATING AT 99%.
--- NOTE | 2019-12-16 17:52 | NUR ---
TOLERATING PRONE POSITIONING WELL WITHOUT INCIDENT GOOD CHEST RISE UNABLE TO TOLERATE I-TIME OF 0.60 INCREASED TO 0.70
--- NOTE | 2019-12-16 18:05 | NUR ---
ENDOTRACHEAL TUBE TURNED TO RIGHT SIDE OF MOUTH NO EVIDENCE OF BEND OR KINK
--- NOTE | 2019-12-16 18:05 | NUR ---
RT AT BEDSIDE ALONG W/ TWO NURSES TO REPOSITION HEAD AND ARMS OF PT. PT IS NOW FACING TOWARD RIGHT SIDE. PT IN REVERSE [place] POSITION, THE WHOLE BED ANGLED AT 45 DEGREES. HYGIENIC CARE WAS PROVIDED. PT TOLERATED REPOSITION WELL. UO 725. VITAL SIGNS ARE STABLE AT THIS TIME. NO SIGNS OF DISTRESS NOTED. WILL CONTINUE TO MONITOR.
--- NOTE | 2019-12-16 19:24 | NUR ---
CHANGE OF SHIFT REPORT GIVEN TO CARPET WINDER NURSE TO ENSURE CONTINUITY OF CARE FOR PT.
--- NOTE | 2019-12-16 19:45 | NUR ---
RECEIVED BEDSIDE REPORT FROM MORNING NURSE. PATIENT IN PRONE POSITION HOB ELEVATED. SEDATED RASS -4 NOTED. ETT TO VENT WITH SETTING PRESSURE CONTROL FIO2 50% PINSP 22, RR 30, PEEP 18. TOLERATED WELL, NO ACUTE RESPIRATORY DISTRESS NOTED. NO FEVER WITH MONITORING BY RECTALLY. BILATERAL LUNGS SOUND DIMINISHED. SR ON THE MONITOR. PICC LINE TO RIGHT UPPER ARM WITH LEVOPHED 5MCG/MIN, VERSED 11MG/HR, FENTANYL 1.5MCG/HR. NGT TO RIGHT NARES WITH GLUCERNA 1.2 10ML/HR WITH FWF 100ML Q4. ASCENCIO CATH IN PLACE. FLACC 0. BILATERAL SIDE RAILS UP. BED IN LOW POSITION. CALL LIGHT WITHIN REACH. WILL CONTINUE TO MONITOR.
--- NOTE | 2019-12-16 19:48 | NUR ---
RECEIVED PT ON DOCUMENTED SETTINGS. VENT PLUGGED INTO RED OUTLET. BMV AT BEDSIDE. ETT SECURED AND INTACT. NO SIGNS OF KINK OR BENT. PT IS IN A PRONE POSITIONS. HEAD TURNED TO THE RIGHT. WILL CONT TO MONITOR
--- NOTE | 2019-12-16 20:20 | NUR ---
RECEIVED PHONE CALL FROM AND D/C AZITHROMYCIN AND PLAQUENIL. CARRIED OUT.
[2019-12-16] MEDS: NOREPINEPHRINE 8 MG in DEXTROSE 5% 250 ML IV PRN (21:38)
--- NOTE | 2019-12-16 22:20 | NUR ---
PT REMAINS IN PRONE POSITION. HEAD TURNED TO THE LEFT ASSISTED BY ALEXIS HARRINGTON. ETT STILL REMAINS AT 27 @ THE LIP. NO KINKS OR BENT NOTED. SX SCANT AMOUNT OF THICK YELLOW REDDISH SECRETION. PT REMAINS STABLE. WILL CONT TO MONITOR
[2019-12-17] VITALS (97 sets, daily range): BP systolic 80–171; BP diastolic 47–99
--- NOTE | 2019-12-17 | NUR ---
PATIENT STABLE WITH SEDATIONS AND VENT. RASS -4, FLACC 0. WILL CONTINUE TO MONITOR.
[2019-12-17] MEDS: PIPERACILLIN/TAZOBACTAM 2.25 GM in DEXTROSE 5% 50 ML IV SCH ×4 (00:07→18:00)
--- NOTE | 2019-12-17 02:10 | NUR ---
POSITION CHANGED TO SUPINE, PATIENT TOLERATED WELL. NO ACUTE RESPIRATORY DISTRESS NOTED. HCG BATH GIVEN. NO FEVER. CHECKED RESIDUAL 70 ML NOTED. HOLD FEEDING AT THIS TIME. ORAL CARE GIVEN. WILL CONTINUE TO MONITOR.
--- NOTE | 2019-12-17 03:20 | NUR ---
STILL RESIDUAL MORE THAN 50CC. NOTIFIED TO . WILL CONTINUE TO MONITOR.
[2019-12-17] MEDS: fentaNYL 1 MG in NACL 0.9% 80 ML IV PRN ×3 (03:32→22:07)
[2019-12-17] MEDS: MIDAZOLAM MDV 100 MG in NACL 0.9% 80 ML IV PRN ×3 (03:32→20:02)
--- NOTE | 2019-12-17 04:03 | NUR ---
pt turned back to supine position by rns. ett remains 7.5 @ 27 cm at the lip. ankorfast changed. will cont to monitor
--- NOTE | 2019-12-17 05:00 | NUR ---
RESUME TUBE FEEDING. FLACC 0. RASS -4. NO ACUTE RESPIRATORY DISTRESS NOTED.
--- NOTE | 2019-12-17 05:31 | NUR ---
pt remains on documented setting. ett is intact. pt is in no distress. will cont to monitor
--- NOTE | 2019-12-17 06:00 | NUR ---
RESIDUAL MORE THAN 60ML. HOLD FEEDING. NOTIFIED TO DR. GUZMAN AND DR. NUÑEZ.
[2019-12-17 06:25] LABS: BASOPHILS % (AUTO) 0.2 % (0.0-2.0); HEMATOCRIT 38.1 % (36-52); HEMOGLOBIN 12.8 g/dL (12.0-18.0); LYMPHOCYTES # (AUTO) 0.5 K/uL (2.0-11.5); LYMPHOCYTES % (AUTO) 3.7 % (20.5-51.1); MEAN CORPUSCULAR HEMOGLOBIN 30 pg (27-31); MEAN CORPUSCULAR HGB CONC 34 g/dL (33-37); MEAN CORPUSCULAR VOLUME 90.1 fL (80-94); MONOCYTES # (AUTO) 0.4 K/uL (0.8-1.0); MONOCYTES % (AUTO) 3.2 % (1.7-9.3); NEUTROPHILS # (AUTO) 11.9 K/uL (1.8-7.7); NEUTROPHILS % (AUTO) 92.9 % (42.2-75.2); PLATELET COUNT (AUTO) 316 K/uL (140-450); RED BLOOD CELL COUNT(AUTO) 4.22 MIL/uL (4.20-6.10); RED CELL DISTRIBUTION WIDTH 13.7 % (11.6-13.7); WHITE BLOOD COUNT (AUTO) 12.8 K/uL (4.8-10.8)
[2019-12-17 06:43] LABS: ANION GAP 13.5 (8-16); ASPARTATE AMINOTRANSFERASE 80 U/L (15-37); CHLORIDE 104 mmol/L (98-107); CREATININE 2.2 mg/dL (0.6-1.3); GFR ARICAN-AMERICAN 39 mL/min (>90); GLUCOSE 186 mg/dL (74-106); LACTATE DEHYDROGENASE 553 U/L (85-227); MAGNESIUM 2.1 mg/dL (1.8-2.4); PHOSPHORUS 2.6 mg/dL (2.5-4.9); POTASSIUM 3.5 mmol/L (3.5-5.1); SODIUM SERUM 142 mmol/L (136-145); TOTAL BILIRUBIN 0.5 mg/dL (0.0-1.0); UREA NITROGEN, BLOOD 44 mg/dL (7-18)
--- NOTE | 2019-12-17 07:28 | NUR ---
BEDSIDE REPORT RECEIVED FROM SUPERVISOR ENGINE [employer]SEMBLY NURSE, PT SEDATED WITH FENTANYL AND VERSED TO RASS -4, SKIN WARM DRY COLOR WNL, PT ON CARDIOPULM MONITOR CONTINUOUSLY HR 82 SR, RR 30, BP 104/66, O2SAT 93%, ETT TO VENT FR, CM AT TEETH, ACPC MODE, FIO2 50%, , RR 30, PIP 22, PEEP 18, EQUAL CHEST RISE AND FALL NOTED, DECREASED BS, NGT IN PLACE, CLAMPED AT THIS TIME, PICC LINE TO SUSI, SITE WNL, ABD SOFT NON DISTENDED, SKIN INTACT, BILAT UE AND LE EDEMA NOTED, ASCENCIO IN PLACE, DRAINING LIGHT YELLOW URINE TO GRAVITY, ALL SAFETY MEASURES IN PLACE, POC REVIEWED, WILL CONTINUE TO MONITOR CURRENT DRIPS: DRY WT 90KG LEVOPHED 8MCG/MIN (11ML/HR), VERSED 11MG/HR (11ML/HR), FENTANYL 1.5MCG/KG/HR (10.85ML/HR),
[2019-12-17] MEDS: INSULIN LISPRO SLIDING SCALE 100 UNITS/ML VIAL SUBQ PRN ×3 (07:34→22:16)
[2019-12-17] MEDS: BLOOD GLUCOSE MONITORING 1 DEV DEV FS SCH ×4 (07:34→21:59)
[2019-12-17] MEDS: ASCORBIC ACID 500 MG TAB PO SCH (09:03)
[2019-12-17] MEDS: OLANZapine 2.5 MG TAB PO SCH (09:03)
[2019-12-17] MEDS: methylPREDNISolone SS 40 MG/ML VIAL IVP SCH ×2 (09:04→21:59)
[2019-12-17] MEDS: PANTOPRAZOLE 40 MG INJ VIAL IVP SCH (09:04)
[2019-12-17] MEDS: ZINC SULF 220 MG CAP PO SCH (09:04)
[2019-12-17] MEDS: FUROSEMIDE 40 MG/4 ML VIAL IVP SCH ×2 (09:04→17:00)
--- NOTE | 2019-12-17 09:04 | NUR ---
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
--- NOTE | 2019-12-17 09:30 | NUR ---
DR MONTES DE OCA AT BEDSIDE. PT TO PRONE AGAIN TODAY.
--- NOTE | 2019-12-17 10:45 | NUR ---
PRONE POSITION COMPLETED WITHOUT COMPLICATIONS HEAD TURNED TO LEFT SIDE ENDOTRACHEAL TUBE REVIEWED NO EVIDENCE OF [facility] OR [facility] PARTICIPATES AT BEDSIDE Elsa PARSONS RCP; BRIANNA/RN; /RN; DR. CARBAJAL AND DR. VALDEZ
--- NOTE | 2019-12-17 12:40 | NUR ---
PT ARM POSITIONS CHANGED, BEDSIDE GLUCOSE 164, 2 UNITS OF INSULIN GIVNE SQ TO LEFT UA, PT REMAINS IN PRONE POSIITON, VITALS STABLE ON MONITOR, REMAINS ON SAME DRIPS WITHOUT TITRATION NEEDED.
--- NOTE | 2019-12-17 13:21 | NUR ---
TOLERATING PRONE POSITION WELL WITHOUT INCIDENT GOOD CHEST RISE
--- NOTE | 2019-12-17 15:30 | NUR ---
CALLED DR.WASEEM NUÑEZ [id number] REVIEWED ABG SAMPLE REPORT NO NEW ORDERS MD TO NOTIFY DR. JAMAR MONTES DE OCA
--- NOTE | 2019-12-17 16:08 | NUR ---
PT COVERED WITH EXTRA BLANKETS, ARM POSITIONS CHANGED, PT MEDHAT PRONE POSITION WELL WITHOUT COMPLICATIONS.
[2019-12-17] MEDS: NOREPINEPHRINE 8 MG in DEXTROSE 5% 250 ML IV PRN (16:43)
[2019-12-17] MEDS ORDERED: CHLOROTHIAZIDE SODIUM 500 MG VIAL IV ONE (19:45)
--- NOTE | 2019-12-17 20:00 | NUR ---
PATIENT WAS ACCEPTED AND ASSESS DONE PATIENT IS SEDATED ON FENTANYL AND VERSED DRIP ALSO AN LEVOPHED DRIP TO MAINTAINED THE BLOOD PRESSURE PATIENT IS IN PRONE POSITION , CONNECTED TO THE VENT PRE OETT WITH SETTING OF PVC 30 60% PEEP 18 PS 22 SAT 99-100%, CHEST IS CLEAR VERY LITTLE SECRETION MORE FROM THE ORAL CAVITY ON TUBE FEEDING OF VITAL AT 10 ML/HR, TOLERATE WELL ABDMEN IS SOFT WITH BS NO BM AT THIS TIME ASCENCIO INTACT OF CLEAR MEÑO URINE ALSO WATER FLUSH 100 Q 4HR,PATENT HAS NO TEMP AT THIS TIME STABLE 2200 NO CHANGE AT THIS RESTING NO FORM OF PAIN WAS NOTICE, STABLE 0000 WILL CONTINUED WITH PLAN OF CARE , STABLE 0200 PATIENT WAS TURNED TO SUPINE POSITION TOLERATE WELL STABLE 0400 TEMP 97.4 STABLE TUBE FEEDING MAINTAIN WITH WATER FLUSH 0600 WILL CONTINUED WITH PLAN OF CARE DAUGHTER HAD CALL FOR AN UP DATE ON PATIENT CONDITION , STABLE WILL TRIED TO WEAN PATIENT FROM THE LEVOPHED DRIP VITAL SIGNS MORE STABLE
--- NOTE | 2019-12-17 22:03 | NUR ---
RECEIVED PT ON DOCUMENTED SETTINGS. VENT PLUGGED INTO RED OUTLET. BMV AT BEDSIDE . ALARMS AUDIBLE AND WORKING. PT IS IN A PRONE POSITION. HEAD TURNED TO THE RIGHT. WILL CONT TO MONITOR
[2019-12-18] VITALS (103 sets, daily range): BP systolic 84–165; BP diastolic 50–87
[2019-12-18] MEDS: PIPERACILLIN/TAZOBACTAM 2.25 GM in DEXTROSE 5% 50 ML IV SCH ×4 (00:54→17:52)
--- NOTE | 2019-12-18 02:35 | NUR ---
PT IS NOW TURNED INTO SUPINE POSITION. ETT REMAINS SECURED AT DOCUMENTED SETTINGS. PT IS IN NO DISTRESS. WILL CONT TO MONITOR
[2019-12-18] MEDS: fentaNYL 1 MG in NACL 0.9% 80 ML IV PRN ×2 (06:00→17:51)
[2019-12-18 06:11] LABS: BASOPHILS % (AUTO) 0.2 % (0.0-2.0); HEMATOCRIT 36.7 % (36-52); HEMOGLOBIN 12.3 g/dL (12.0-18.0); LYMPHOCYTES # (AUTO) 0.4 K/uL (2.0-11.5); LYMPHOCYTES % (AUTO) 3.8 % (20.5-51.1); MEAN CORPUSCULAR HEMOGLOBIN 30 pg (27-31); MEAN CORPUSCULAR HGB CONC 33 g/dL (33-37); MEAN CORPUSCULAR VOLUME 90.1 fL (80-94); MONOCYTES # (AUTO) 0.6 K/uL (0.8-1.0); MONOCYTES % (AUTO) 5.1 % (1.7-9.3); NEUTROPHILS # (AUTO) 9.9 K/uL (1.8-7.7); NEUTROPHILS % (AUTO) 90.9 % (42.2-75.2); PLATELET COUNT (AUTO) 360 K/uL (140-450); RED BLOOD CELL COUNT(AUTO) 4.07 MIL/uL (4.20-6.10); RED CELL DISTRIBUTION WIDTH 13.8 % (11.6-13.7); WHITE BLOOD COUNT (AUTO) 10.9 K/uL (4.8-10.8)
[2019-12-18 07:17] LABS: ALBUMIN 2.1 g/dL (3.4-5.0); ANION GAP 10.6 (8-16); CARBON DIOXIDE 32.1 mmol/L (21-32); CREATININE 2.5 mg/dL (0.6-1.3); MAGNESIUM 2.5 mg/dL (1.8-2.4); PHOSPHORUS 3.5 mg/dL (2.5-4.9); POTASSIUM 3.7 mmol/L (3.5-5.1); TOTAL BILIRUBIN 0.4 mg/dL (0.0-1.0)
[2019-12-18] MEDS: BLOOD GLUCOSE MONITORING 1 DEV DEV FS SCH ×4 (07:30→21:45)
--- NOTE | 2019-12-18 08:33 | NUR ---
HR 43-50, BP 155/81, O2SAT 99%, DR CARBAJAL NOTIFIED, NO IMMEDIATE INTERVENTION ORDERED, CRITICAL CARE DOCTOR IS HERE NOW, HE WILL SEE PT SOON. PRIMARY NURSE AWARE.
[2019-12-18] MEDS: FUROSEMIDE 40 MG/4 ML VIAL IVP SCH (09:41)
[2019-12-18] MEDS: PANTOPRAZOLE 40 MG INJ VIAL IVP SCH (09:41)
[2019-12-18] MEDS: ASCORBIC ACID 500 MG TAB PO SCH (09:42)
[2019-12-18] MEDS: methylPREDNISolone SS 40 MG/ML VIAL IVP SCH ×2 (09:42→21:45)
[2019-12-18] MEDS: ZINC SULF 220 MG CAP PO SCH (09:42)
[2019-12-18] MEDS: OLANZapine 2.5 MG TAB PO SCH (09:42)
--- NOTE | 2019-12-18 10:00 | NUR ---
DR MONTES DE OCA IN TO SEE PATIENT AND WANT TO KEEP SATS>90%, INCREASED TUBE FEEDS TO GOAL 60, HE IS AWARE OF DROP IN HR TO 30S BUT NON-SUSTAINED. CALL MD IF RESIDUAL >150CC. PLAN NO PRONING TODAY AND WILL FOLLOW SATURATIONS
[2019-12-18] MEDS: MIDAZOLAM MDV 100 MG in NACL 0.9% 80 ML IV PRN ×3 (11:06→23:20)
[2019-12-18] MEDS: NOREPINEPHRINE 8 MG in DEXTROSE 5% 250 ML IV PRN (12:13)
[2019-12-18] MEDS: INSULIN LISPRO SLIDING SCALE 100 UNITS/ML VIAL SUBQ PRN ×3 (12:22→21:49)
--- NOTE | 2019-12-18 13:48 | NUR ---
12/18/19 RD FOLLOW UP COMPLETED PLEASE REFER TO NUTRITION ASSESSMENT UNDER CARE ACTIVITY FOR ESTIMATED NUTRITIONAL NEEDS. 1. CONTINUE GLUCERNA 1.2 @60ML/HR. START AT 10 ML AND INCREASE BY 10 ML Q4H -THIS WILL PROVIDE 1440 ML OF VOLUME, 1728 KCAL, AND 86 GM OF PROTEIN 2. CONTINUE FREE WATER FLUSH OF 100 ML Q4H 3. RECOMMEND SWALLOW EVALUATION IF PT IS EXTUBATED 4. RD TO FOLLOW-UP 2-3 DAYS, HIGH RISK SERGIO BEAN RD
--- NOTE | 2019-12-18 15:19 | NUR ---
PT. ADMITTED WITH LOW BRENDA SCALE AT RISK, WILL CONTINUE PRESSURE ULCER PREVENTION INTERVENTIONS: -SHIFT WEIGHT, TURN AND REPOSITION PATIENT Q 2H IF NOT CONTRAINDICATED WITH OTHER POC -ASSESS AND MONITOR SKIN CONDITION DURING POSITION CHANGE -OFFLOAD BILATERAL HEELS BY PLACING PILLOWS UNDER CALVES AT ALL TIMES, UNLESS OTHERWISE CONTRAINDICATED -PRESSURE REDISTRIBUTION BY PLACING PILLOWS AND OFFLOADING SACRALCOCCYX -KEEP SKIN CLEAN AND DRY AT ALL TIMES.
--- NOTE | 2019-12-18 17:20 | NUR ---
PEEP TITRATED TO 16 cmH2O PER . PT NOT IN ANY DISTRESS AT THIS TIME. WILL CONTINUE TO MONITOR.
[2019-12-18] MEDS ORDERED: NOREPINEPHRINE 16 MG in DEXTROSE 5% 250 ML IV PRN (18:00)
--- NOTE | 2019-12-18 18:00 | NUR ---
tUBE FEEDS UP TO 20CC AT 10AM AND 30CC AT 1400 AND 40CC/HR AT 1800PM PER ORDER TO INCREASE EVERY 4HRS BY 10CC WITH GOAL 60CC. ENDORSED PLAN OF CARE TO NIGHT RN. ORDER WAS FROM ALLIE GREGORY MD.
--- NOTE | 2019-12-18 19:25 | NUR ---
RECEIVED REPORT FROM DAYSHIFT NURSE AT PATIENTS WINDOW, MONITOR AND PATIENT VISIBLE. POSITIVE COVID, ON DROPLET PRECAUTIONS. ETT TO VENT, ACPC MODE FI02 60%, PEEP 16, RATE 30, PINSP 22. SATURATIONS 99%, GOOD WAVE FORM. RECTAL THERMOMETER IN PLACE SHOWING 99.8. CHRISTA PICC LINE IN PLACE, INFUSING LEVOPHED (8MG/250) @ 8 MCG/MIN-15ML/HR. BP STABLE-106/69. FENTANYL 1.5 MCG/KG/HR-10.8 ML/HR AND VERSED 11MG/HR-11ML/HR. RASS -3. DRY WEIGHT USED 90 KG. IVF TKO @ 5ML/HR. ASCENCIO CATHETER IN PLACE, YELLOW URINE NOTED WITH SEDIMENT. HEEL PROTECTORS IN PLACE, DRESSINGS IN PLACE TO ERICA PROMINENCES AT BILATERAL KNEES AND AT CLAVICLES/SHOULDERS. HOB 30 DEGREES, SIDERAILS UP x3. SAFETY MEASURES IN PLACE. CLUSTERED NURSING CARE IN PLACE. WILL CONTINUE TO MONITOR.
--- NOTE | 2019-12-18 19:45 | NUR ---
RECEIVED REPORT FROM AM SHIFT. PATIENT SEEN AND ASSESSED. PATIENT IS INTUBATED WITH ETT SIZE 7.5 AND SECURED WITH ANCHOR-FAST AT 27CM. FOUND PATIENT ON VENT SETTINGS: AC/PC 22, RR 30, iT 0.70, +16, 60% WITH SPO2 OF 97%. FiO2 TITRATED TO 50% WITH SPO2 OF 96%. AUSCULTATION REVEALS COARSE BILATERAL BREATH SOUNDS. VENT PLUGGED IN RED OUTLET, ALARMS SET AND AUDIBLE, HOB > 30 DEGREES, AND BVM AT BEDSIDE. PATIENT IS IN NO APPARENT RESPIRATORY DISTRESS AT THIS TIME. WILL CONTINUE TO MONITOR PATIENT.
--- NOTE | 2019-12-18 20:20 | NUR ---
S1S2, HR 82 BPM, SR ON MONITOR. LUNG SOUNDS DIMINISHED, EVEN AND UNLABORED BREATHING, NO SIGNS OR SYMPTOMS OF SOB/DISTRESS. ABDOMEN IS LARGE AND NONTENDER, BOWEL SOUNDS ARE ACTIVE. ASSESSED SKIN AT DRESSINGS, INTACT, LEFT KNEE HAS SOME SLIGHT REDNESS BUT NO INJURIES NOTED. REINFORCED DRESSINGS. OFFLOADED PRESSURE AREAS. PATIENT SLIGHTLY WITHDRAWS TO PAIN, DOES NOT OPEN EYES. PUPILS PERRL, 2MM. BED LOCKED AND IN LOWEST POSITION.
--- NOTE | 2019-12-18 20:30 | NUR ---
RECTAL THERMOMETER READING 99.8. REMOVED THICK BLANKETS FROM PATIENT, TURNED AND REPOSITIONED AND REINFORCED THERMOMETER AND COOLING BLANKET. ADDED MORE FLUIDS TO COOLING MACHINE ANS RESET VALUES. TEMPERATURE GOING DOWN TO 98.8. ON CONTINUOUS RECTAL THERMOMETER READING AND COOLING BLANKET.
--- NOTE | 2019-12-18 21:40 | NUR ---
BLOOD GLUCOSE, 232, GAVE INSULIN PER SLIDING SCALE. PROVIDED VAP ORAL CARE AND REINFORCED SECUREMENT AT NGT. AIR CHECK CONFIRMED PLACEMENT AND RESIDUALS 15 ML. TOLERATING FEEDING WELL. ALL MEDS GIVEN, WILL CONTINUE TO MONITOR.
--- NOTE | 2019-12-18 22:20 | NUR ---
VISIBLE CHEST RISE AND FALL. VITALS WNL. HR FLUCTUATES BETWEEN 40'S-90'S. RASS -3, SAFETY MEASURES IN PLACE, FLACC 0.
[2019-12-19] VITALS (104 sets, daily range): BP systolic 94–186; BP diastolic 56–97
--- NOTE | 2019-12-19 00:30 | NUR ---
UPDATED PATIENTS DAUGHTER ON PATIENT STATUS. DAUGHTER REPORTS PTS AT HOME HAS TESTED POSITIVE AND IS SELF QUARANTINED. VERBALIZES UNDERSTANDING.
[2019-12-19] MEDS: PIPERACILLIN/TAZOBACTAM 2.25 GM in DEXTROSE 5% 50 ML IV SCH ×4 (00:51→18:40)
[2019-12-19] MEDS ORDERED: ATROPINE 0.4 MG/ML VIAL IVP SCH (01:00)
--- NOTE | 2019-12-19 02:00 | NUR ---
AIRCHECK AND AUSCULTATION CONFIRMED AT NGT. RESIDUALS LESS THAN 15ML, INCREASED PATIENT TUBE FEEDING TO 50ML/HR. HOB 30 DEGREES. CHRISTA PICC IN PLACE STILL INFUSING DRIPS-FENTANYL, VERSED, AND LEVOPHED DRIPS. FLACC [address]
--- NOTE | 2019-12-19 04:10 | NUR ---
VAP ORAL CARE PROVIDED. OFFLOADED PRESSURE AREAS. SKIN STILL WARM AND DRY, TEMPERATURE RANGES BETWEEN 98-99.3. COOLING BLANKET IN PLACE. ASCENCIO DRAINING YELLOW URINE WITH SEDIMENT NOTED. EMPTIED 900 ML. SIDERAILS UPX3, BED LOCKED AND IN LOWEST POSITION. HR-SR ON MONITOR. PATIENT WILL GO SINUS SANGEETA LOW 45 BPM, BUT WILL GO BACK TO NSR WITHIN A COUPLE MINUTES. PRN ATROPINE IF BELOW 40BPM.
[2019-12-19] MEDS: fentaNYL 1 MG in NACL 0.9% 80 ML IV PRN ×2 (04:43→14:33)
[2019-12-19 05:01] LABS: BASOPHILS % (AUTO) 0.2 % (0.0-2.0); HEMATOCRIT 35.9 % (36-52); HEMOGLOBIN 11.8 g/dL (12.0-18.0); LYMPHOCYTES # (AUTO) 0.3 K/uL (2.0-11.5); LYMPHOCYTES % (AUTO) 3.9 % (20.5-51.1); MEAN CORPUSCULAR HEMOGLOBIN 30 pg (27-31); MEAN CORPUSCULAR HGB CONC 33 g/dL (33-37); MEAN CORPUSCULAR VOLUME 91.3 fL (80-94); MONOCYTES # (AUTO) 0.6 K/uL (0.8-1.0); MONOCYTES % (AUTO) 6.5 % (1.7-9.3); NEUTROPHILS # (AUTO) 7.8 K/uL (1.8-7.7); NEUTROPHILS % (AUTO) 89.4 % (42.2-75.2); PLATELET COUNT (AUTO) 342 K/uL (140-450); RED BLOOD CELL COUNT(AUTO) 3.93 MIL/uL (4.20-6.10); RED CELL DISTRIBUTION WIDTH 14.4 % (11.6-13.7); WHITE BLOOD COUNT (AUTO) 8.7 K/uL (4.8-10.8)
--- NOTE | 2019-12-19 05:53 | NUR ---
PATIENT STILL REMAINS ON VENTILATOR SUPPORT. NO CHANGE IN VENT SETTINGS AT THIS TIME. PER PROTOCOL, FiO2 HAS BEEN TITRATED TO 50%. AIRWAY IS PATENT. NO RESPIRATORY DISTRESS NOTED AT THIS MOMENT. WILL CONTINUE TO MONITOR PATIENT.
--- NOTE | 2019-12-19 06:50 | NUR ---
BLOOD SUGAR-232, GAVE 4 UNITS HUMALOG. TURNED AND REPOSITIONED PATIENT. OFFLOADED PRESSURE AREAS. RECTAL THERMOMETER STILL IN PLACE. CONNECTED TO CONTINUOUS CARDIAC MONITORING. BP STABLE, LEVOPHED AT 6MCG/MIN. RASS -3, FENTANYL-1.5 MCG/MIN AND VERSED AT 9 ML/HR/
[2019-12-19] MEDS: BLOOD GLUCOSE MONITORING 1 DEV DEV FS SCH ×4 (07:10→21:00)
[2019-12-19] MEDS: INSULIN LISPRO SLIDING SCALE 100 UNITS/ML VIAL SUBQ PRN ×3 (07:29→23:45)
--- NOTE | 2019-12-19 07:29 | NUR ---
RECEIVED INTUBATED PT ON VENT WITH A 7.5 ETT SECURED @27 TEETH/GUM. VENT SETTINGS PC Pinsp 22, R 30, PEEP 16 AND FIO2 TITRATED TO 40%. PT NOT IN ANY DISTRESS AT THIS TIME. PT SUCTIONED OBTAINED SMALL AMOUNT OF THICK BROWNISH/RED SECRETIONS. VENT IS PLUGGED INTO A RED OUTLET WITH ALARMS ON AND FUNCTIONING.
[2019-12-19] MEDS: MIDAZOLAM MDV 100 MG in NACL 0.9% 80 ML IV PRN ×2 (08:41→22:28)
[2019-12-19] MEDS: methylPREDNISolone SS 40 MG/ML VIAL IVP SCH ×2 (09:51→22:32)
[2019-12-19] MEDS: PANTOPRAZOLE 40 MG INJ VIAL IVP SCH (09:51)
[2019-12-19] MEDS: OLANZapine 2.5 MG TAB PO SCH (09:52)
[2019-12-19] MEDS: ZINC SULF 220 MG CAP PO SCH (09:52)
[2019-12-19] MEDS: ASCORBIC ACID 500 MG TAB PO SCH (09:53)
[2019-12-19 10:10] LABS: ALBUMIN 2.3 g/dL (3.4-5.0); ANION GAP 11.3 (8-16); CARBON DIOXIDE 32.8 mmol/L (21-32); CREATININE 2.5 mg/dL (0.6-1.3); MAGNESIUM 3.1 mg/dL (1.8-2.4); PHOSPHORUS 4.6 mg/dL (2.5-4.9); POTASSIUM 4.1 mmol/L (3.5-5.1); TOTAL BILIRUBIN 0.4 mg/dL (0.0-1.0)
[2019-12-19] MEDS ORDERED: ENOXAPARIN 100 MG/ML SYR SUBQ SCH (12:00)
--- NOTE | 2019-12-19 12:50 | NUR ---
PER NEW VENT SETTINGS PC Pinsp 22, R30, PEEP 14 AND FIO2 60%. PT NOT IN ANY DISTRESS PT REMAINS SEDATED. WILL CONTINUE TO MONITOR.
--- NOTE | 2019-12-19 16:23 | NUR ---
PER PEEP TITRATED TO 12 cmH2O. WILL CONTINUE TO MONITOR.
--- NOTE | 2019-12-19 17:45 | NUR ---
PT REMAINS ON DOCUMENTED VENT SETTINGS. PT NOT IN ANY DISTRESS AT THIS TIME. ETT IS SECURE WITH A PATENT AIRWAY. VENT ALARMS ON AND FUNCTIONING.
--- NOTE | 2019-12-19 19:30 | NUR ---
RECEIVED REPORT FROM [facility] NURSE. POSITIVE COVID, ON DROPLET PRECAUTIONS. ETT TO VENT, ACPC MODE FI02 60%, PEEP 12, RATE 30, PINSP 22. SATURATIONS 99%, GOOD WAVE FORM. LUNG SOUNDS ARE DIMINISHED BILATERALLY UPPER LOBES AND BASES. RECTAL THERMOMETER IN PLACE SHOWING 99.2. CHRISTA PICC LINE IN PLACE, INFUSING FENTANYL 1.5 MCG/KG/HR-10.8 ML/HR AND VERSED 9MG/HR-11ML/HR. RASS -3. DRY WEIGHT USED 90 KG. PERRL 3MM, SLUGGISH. IVF TKO @ 5ML/HR. NGT TO RIGHT NARE, CONNECTED TO TUBE FEEDING, GLUCERNA @ 60 ML/HR. AIR CHECK CONFIRMED, RESIDUALS 15 ML. ABDOMEN IS LARGE AND NONTENDER, BOWEL SOUNDS PRESENT. ASCENCIO CATHETER IN PLACE, YELLOW URINE NOTED WITH SEDIMENT. HEEL PROTECTORS IN PLACE, DRESSINGS IN PLACE TO ERICA PROMINENCES AT BILATERAL KNEES AND AT CLAVICLES/SHOULDERS. HOB 30 DEGREES, SIDERAILS UP x3. SAFETY MEASURES IN PLACE. CLUSTERED NURSING CARE IN PLACE. WILL CONTINUE TO MONITOR.
--- NOTE | 2019-12-19 20:02 | NUR ---
RECEIVED PATIENT ON DOCUMENTED SETTINGS. VENT PLUGGED INTO RED OUTLET. BMV AT BEDSIDE. ETT SECURED AND INTACT. PT IS IN NO DISTRESS. WILL CONT TO MONITOR.
[2019-12-19] MEDS ORDERED: LOVENOX 1MG/KG Q12H SUBQ SCH (21:00)
--- NOTE | 2019-12-19 21:05 | NUR ---
SCHEDULED MEDICATIONS GIVEN, NEW ORDER FOR LOVENOX SUBQ GIVEN. ACCUCHECK 222, GAVE 4 UNITS PER SLIDING SCALE. TURNED AND REPOSITIONED PATIENT AND REINFORCED RECTAL THERMOMETER. SKIN INTACT, SLIGHT REDNESS NOTED, OFFLOADED PRESSURE AREAS. PROVIDED VAP CARE. PT WITHDRAWS TO DEEP PAIN ONLY. REINFORCED DRESSING AT NGT, SECURED AND IN PLACE. SAFETY MEASURES IN PLACE. WILL CONTINUE TO MONITOR.
[2019-12-19] MEDS ORDERED: ENOXAPARIN 40 MG/0.4 ML SYR SUBQ ONE (21:07)
[2019-12-19] MEDS: ENOXAPARIN 100 MG/ML SYR SUBQ SCH (22:33)
--- NOTE | 2019-12-19 23:25 | NUR ---
TURNED AND POSITIONED PATIENT. CHRISTA PICC IN PLACE, CHANGED DRESSING, STERILE TECHNIQUE USED, APPLIED MASK TO PATIENT. ALL VITALS STABLE, TEMPERATURE 98.7. HOB 30 DEGREES, RESIDUALS 5 ML. FLACC 0. EYES REACTIVE TO LIGHT. PROVIDED VAP CARE. EMPTIED TRASH BINS IN ROOM, USED GOOSE NECK TIE TO DISCARD. MAINTAINING DROPLET PRECAUTIONS.
[2019-12-20] VITALS (105 sets, daily range): BP systolic 98–149; BP diastolic 56–97
--- NOTE | 2019-12-20 00:40 | NUR ---
PTs DAUGHTER CALLED FOR UPDATE. MADE AWARE OF PRONE POSITIONING TO IMPROVE SATURATIONS, DAUGHTER VERBALIZES UNDERSTANDING. PT ON ACVC 22, FI02 60% TV 500 PEEP 10.
[2019-12-20] MEDS: PIPERACILLIN/TAZOBACTAM 2.25 GM in DEXTROSE 5% 50 ML IV SCH ×4 (00:43→17:14)
[2019-12-20] MEDS: fentaNYL 1 MG in NACL 0.9% 80 ML IV PRN ×3 (00:43→21:21)
--- NOTE | 2019-12-20 02:10 | NUR ---
RASS -3, HOB 30 DEGREES, CONNECTED TO CONTINUOUS CARDIAC MONITORING, ETT TO VENT, VENT SETTINGS SAME START OF SHIFT, VISIBLE CHEST RISE AND FALL, BREATHING IS UNLABORED.
--- NOTE | 2019-12-20 04:10 | NUR ---
TURNED AND REPOSITIONED PATIENT, CALLED RT PER PATIENT DESATTING WHEN LYING FLAT AND CANNOT COMPLETELY SUCTION AT ETT. TRIED BITE GUARD AND STILL CANNOT SUCTION FULLY. RT AT BEDSIDE, PROVIDED 100% O2 AND LAVAGE OF 20ML. THICK SECRETIONS WITH MULTIPLE MUCUS PLUGS SUCTIONED. SATURATIONS INCREASED. PT TOLERATED WELL. SKIN AT LEFT BUTTOCKS HAS REDNESS/PURPLE-DEEP TISSUE , SKIN INTACT BUT SKIN IS NONBLANCHABLE. APPLIED OPTIFOAM DRESSING. OFFLOADED PRESSURE AREAS. HEEL PROTECTORS IN PLACE. PT WITHDRAWS TO SUCTIONING AND LAVAGE. PUPILS PERRL. HOB 30 DEGREES, BED LOCKED AND IN LOWEST POSITION.
[2019-12-20 04:30] LABS: BASOPHILS % (AUTO) 0.2 % (0.0-2.0); HEMATOCRIT 34.3 % (36-52); HEMOGLOBIN 11.2 g/dL (12.0-18.0); LYMPHOCYTES # (AUTO) 0.4 K/uL (2.0-11.5); LYMPHOCYTES % (AUTO) 6.1 % (20.5-51.1); MEAN CORPUSCULAR HEMOGLOBIN 30 pg (27-31); MEAN CORPUSCULAR HGB CONC 33 g/dL (33-37); MEAN CORPUSCULAR VOLUME 92.5 fL (80-94); MONOCYTES # (AUTO) 0.3 K/uL (0.8-1.0); MONOCYTES % (AUTO) 4.9 % (1.7-9.3); NEUTROPHILS # (AUTO) 5.6 K/uL (1.8-7.7); NEUTROPHILS % (AUTO) 88.8 % (42.2-75.2); PLATELET COUNT (AUTO) 289 K/uL (140-450); RED BLOOD CELL COUNT(AUTO) 3.71 MIL/uL (4.20-6.10); RED CELL DISTRIBUTION WIDTH 14.1 % (11.6-13.7); WHITE BLOOD COUNT (AUTO) 6.3 K/uL (4.8-10.8)
[2019-12-20 04:45] LABS: ANION GAP 9.9 (8-16); CARBON DIOXIDE 35.6 mmol/L (21-32); CREATININE 2.1 mg/dL (0.6-1.3); POTASSIUM 4.5 mmol/L (3.5-5.1)
[2019-12-20 05:17] LABS: MAGNESIUM 3.2 mg/dL (1.8-2.4); PHOSPHORUS 2.9 mg/dL (2.5-4.9)
--- NOTE | 2019-12-20 05:37 | NUR ---
PT REMAINS ON DOCUMENTED SETTING. BMV AT BEDSIDE. ALARMS AUDIBLE. ETT SECURED AND INTACT. NO DISTRESS NOTED
--- NOTE | 2019-12-20 05:50 | NUR ---
RT AT BEDSIDE TO RETRIEVE SECOND ABG, FIRST ABG INCONCLUSIVE. NEW TUBE FEEDING STARTED. BLOOD SUGAR 215, WILL COVER PER SLIDING SCALE
[2019-12-20] MEDS ORDERED: FUROSEMIDE 40 MG/4 ML VIAL IVP ONE (07:10)
[2019-12-20] MEDS: BLOOD GLUCOSE MONITORING 1 DEV DEV FS SCH ×4 (07:30→21:00)
--- NOTE | 2019-12-20 07:30 | NUR ---
BEDSIDE REPORT RECEIVED FROM PIPE TURNER NURSE, PT SEDATED TO RASS -3, WITH ETT TO VENT 7.5F, 27 AT TEETH, ACPC FIO2 60%, PIP 22, PEEP 12, RR 30, VITALS STABLE, RESP UNLABORED, BILAT CHEST RISE AND FALL, SKIN WARM DRY COLOR WNL, SR ON MONITOR, CHRISTA PICCLINE, DOUBLE LUMEN, SITE WNL, NGT TO R NARE IN PLACE, FEEDING ONGOING AT 60ML/HR, ABD SOFT NON DISTNEDED, ASCENCIO IN PLACE, DRIANING TO GRAVITY, GEN EDEMA NOTED ON ALL EXT, RECTAL TEMP PROBE IN PLACE, CURRENT TEMP 99.8. SKIN INTACT, PURPLE DISCOLORATION, NON BLANCHABLE ON LEFT BUTTOCK, POC REVIEWED, ALL SAFETY MEASURES IN PLACE, CURRENT DRIPS: VERSED 9MG/HR (9ML/HR), FENTANYL 1.5MCG/KG/HR (10.8ML/HR), DRY WT 90KG.
--- NOTE | 2019-12-20 07:33 | NUR ---
RECEIVED INTUBATED PT ON VENT WITH A 7.5 ETT SECURED @27 TEETH/GUM. VENT SETTINGS PC Pinsp 22, R 30, PEEP 12 AND FIO2 60%. PT SLIGHTLY AGITATED SLIGHT ACCESSORY MUSCLE USE. PT SUCTIONED OBTAINED SMALL AMOUNT OF THICK BROWNISH/RED SECRETIONS, AIRWAY IS PATENT AND SECURE. VENT IS PLUGGED INTO A RED OUTLET WITH ALARMS ON AND FUNCTIONING.
[2019-12-20] MEDS: PANTOPRAZOLE 40 MG INJ VIAL IVP SCH (08:59)
[2019-12-20] MEDS: INSULIN LISPRO SLIDING SCALE 100 UNITS/ML VIAL SUBQ PRN ×5 (09:00→23:36)
[2019-12-20] MEDS: methylPREDNISolone SS 40 MG/ML VIAL IVP SCH (09:01)
[2019-12-20] MEDS: ZINC SULF 220 MG CAP PO SCH (09:01)
[2019-12-20] MEDS: ASCORBIC ACID 500 MG TAB PO SCH (09:01)
[2019-12-20] MEDS: ENOXAPARIN 100 MG/ML SYR SUBQ SCH ×2 (09:03→21:00)
--- NOTE | 2019-12-20 10:00 | NUR ---
AM CARE DONE, ORAL CARE, ASCENCIO CARE, CHG WIPES, PERICARE, PT RESPONDS TO PAIN.
[2019-12-20] MEDS: MIDAZOLAM MDV 100 MG in NACL 0.9% 80 ML IV PRN ×2 (10:17→23:38)
--- NOTE | 2019-12-20 13:25 | NUR ---
Pinsp INCREASED TO 24 TO INCREASE VT AND VE. NURSE MADE AWARE WILL CONTINUE TO MONITOR.
--- NOTE | 2019-12-20 13:45 | NUR ---
6 UNITS OF INSULIN GIVEN FOR 260, PHOTO OF LEFT BUTTOCK TAKEN.
[2019-12-20] MEDS ORDERED: Z-GUARD PASTE TP PRN (15:05)
--- NOTE | 2019-12-20 15:28 | NUR ---
NEW VENT SETTINGS REQUESTED BY AC 22, VT 500, PEEP 10 AND FIO2 60%. WILL OBTAIN ABG IN 1 HOUR.
--- NOTE | 2019-12-20 15:55 | NUR ---
DR JESUS AT BEDSIDE FOR EVAL
--- NOTE | 2019-12-20 16:00 | NUR ---
PT REMAINS ON ETT TO VENT, FENT AND VERSED, RECTAL PROBE READS 99.1, REMAINS WITH RASS -3.
--- NOTE | 2019-12-20 19:30 | NUR ---
RECEIVED REPORT FROM DAYSPAFT NURSE AT PATIENTS BEDSIDE. ORALLY INTUBATED, ETT TO VENT, ACVC 22, FI02 60%, TV 500, PEEP 10, SATURATIONS 95%, BREATHING IS EVEN AND UNLABORED. LUNG SOUNDS ARE DIMINISHED. S1S2, SR ON MONITOR-HEART RATE 79BPM. BP STABLE-121/75. SKIN WARM AND DRY, RECTAL TEMP-99.5. NGT IN PLACE TO RIGHT NARE, CONNECTED TO TUBE FEEDING, 60ML/HR. CONFIRMED PLACEMENT VIA AIR CHECK, RESIDUALS 5 ML. ABDOMEN IS LARGE ROUND AND NONTENDER WITH HYPOACTIVE BOWEL SOUNDS. RIGHT UPPER ARM PICC LINE, DRESSING DRY AND INTACT, INFUSING FENTANYL-1.5 MCG/KG/HR AND VERSED-9MG/HR-9ML/HR, RASS -3, DRY WEIGHT 90KG. PATIENT WITHDRAWS TO PAIN, ATTEMPTING TO OPEN EYES. PERRL 2MM. SKIN INTACT, GENERALIZED EDEMA NOTED AT BUE. NONBLANCHABLE DTI TO LEFT BUTTOCK. DRESSING IN PLACE. HELL PROTECTORS IN PLACE. BED LOCKED AND IN LOWEST POSITION, HOB 30 DEGREES, WILL CONTINUE TO MONITOR.
--- NOTE | 2019-12-20 19:55 | NUR ---
RECEIVED REPORT FROM AM SHIFT. PATIENT SEEN AND ASSESSED. PATIENT IS INTUBATED WITH ETT SIZE 7.5 AND SECURED WITH ANCHOR-FAST AT 27CM @LIP. FOUND PATIENT ON VENT SETTINGS: AC/VC 22, 500, +10, 60% WITH SPO2 OF 95%. . AUSCULTATION REVEALS COARSE/DIMINISHED BILATERAL BREATH SOUNDS. VENT PLUGGED IN RED OUTLET, ALARMS SET AND AUDIBLE, HOB > 30 DEGREES, AND BVM AT BEDSIDE. PATIENT IS IN NO APPARENT RESPIRATORY DISTRESS AT THIS TIME. MDI TX NOT INDICATED AT THIS TIME. WILL CONTINUE TO MONITOR PATIENT.
--- NOTE | 2019-12-20 21:10 | NUR ---
SCHEDULED MEDICATIONS GIVEN, BLOOD SUGAR 232, PER SLIDING SCALE GIVE 4 UNITS. VERIFIED WITH SECOND RN. PT OFF SOLUMEDROL BUT CONTINUES WITH TUBE FEEDING. TOLERATED WELL. TURNED AND REPOSITIONED PATIENT, AND PROVIDED VAP CARE. SUCTIONED SCANT AMOUNT OF CREAMY SECRETIONS AT MOUTH. SAFETY MEASURES IN PLACE, FLACC 0.
[2019-12-20] MEDS: LORazepam 2 MG/ML VIAL IM/IVP PRN (22:38)
--- NOTE | 2019-12-20 22:50 | NUR ---
VENT ALARMING, PT APPEARS TO BE IN SOME RESPIRATORY DISTRESS, ACCESSORY MUSCLES USED FOR BREATHING. SATURATIONS DECREASING LOW TO 72%. SECURED PULSE OX, NO CHANGE IN SATURATIONS, APPLIED A NEW PULSE OXIMETER, AND SATURATIONS REMAIN LOW. PROVIDED 100% OXYGEN AND SUCTIONED ETT AND ORALLY, PATIENTS SATURATIONS DID NOT IMPROVE. CALLED RT TO BED SIDE AND PAGED RESIDENT MD. PT CONTINUES TO HAVE LABORED BREATHING AND PATIENT OPENING EYES AND BITING DOWN ON TUBE (FIGHTING VENT). CONFIRMED WITH RESIDENT TO ADMINISTER ATIVAN IVP, PT REMAINS ON VERSED AND FENTANYL CONTINUOUS DRIPS. CHARGE NURSE AND RN, RT, AND DR. NEELY AT BEDSIDE TO PRONE POSITION PATIENT. HANDS POSITIONED AND LYING PRONE WITH REVERSE TRENDELENBURG. FEEDING OFF AT THIS TIME AND DISCONNECTED. SIDERAILS UP. SATURATIONS IMPROVED TO 96-100%. PT MORE CALM AND NOT IN DISTRESS. PADS IN PLACE TO OFFLOAD PRESSURE AREAS. WILL CONTINUE TO MONITOR.
[2019-12-21] VITALS (104 sets, daily range): BP systolic 90–136; BP diastolic 45–88
--- NOTE | 2019-12-21 00:13 | NUR ---
CALLED TO BEDSIDE FOR DESATURATION. CATHETER WAS SUCCESSFULLY PASSED NO SECRETIONS OBTAINED. FiO2 WAS INCREASED WITH NO IMPROVEMENT IN SPO2. RN AND DR NEELY AT BEDSIDE. AT APPROXIMATELY 2250, PATIENT WAS PLACED IN PRONE POSITION. HEAD AND HAND WERE POSITIONED. PROCEDURE WAS SUCCESSFULLY COMPLETED WITH NO RESPIRATORY DISTRESS. SPO2 IMPROVED TO 100% AND FiO2 WAS TITRATED DOWN. AIRWAY IS PATENT AND ETT IS SECURED. RNs AT BEDSIDE. WILL CONTINUE TO MONITOR PATIENT.
[2019-12-21] MEDS: PIPERACILLIN/TAZOBACTAM 2.25 GM in DEXTROSE 5% 50 ML IV SCH ×4 (00:56→17:07)
--- NOTE | 2019-12-21 02:24 | NUR ---
PT REMAINS IN PRONE POSITION. ALL VITALS STABLE, SR ON MONITOR, PATIENTS RESPIRATIONS AT SET RATE OF VENTILATOR-22. SATURATIONS 99%. FLACC 0.
--- NOTE | 2019-12-21 03:20 | NUR ---
REPOSITIONED HEAD AND HAND. AIRWAY IS PATENT. PATIENT IN NO RESPIRATORY DISTRESS AT THIS TIME.
--- NOTE | 2019-12-21 03:50 | NUR ---
RT AND 2 RN's AT BEDSIDE, PULLED PATIENT UP AND SWITCHED HEAD/FACE/ARM POSITION TO OTHER SIDE-RIGHT.PT TOLERATED WELL. VENT SETTINGS ACVC 22 FI02 50%, TV 500 PEEP 10. SATURATIONS 98%. BREATHING IS UNLABORED. PROVIDED VAP CARE AND SPONGE BATH. APPLIED ZGUARD TO LEFT BUTTOCK, SKIN INTACT, NONBLANCHABLE PURPLENESS/REDNESS. NEW DRESSING. BED LOCKED AND IN LOWEST POSITION. FLACC 0.
--- NOTE | 2019-12-21 06:24 | NUR ---
CLOSE SUCTION PHILLIPS CHANGED. PATIENT STILL REMAINS ON VENTILATOR SUPPORT. NO CHANGE IN VENT SETTINGS AT THIS TIME. PER PROTOCOL, FiO2 HAS BEEN TITRATED TO 50%. AIRWAY IS PATENT. NO RESPIRATORY DISTRESS NOTED AT THIS MOMENT. WILL CONTINUE TO MONITOR PATIENT.
--- NOTE | 2019-12-21 06:40 | NUR ---
RESIDENT MD HERE TO ASSESS PATIENT. AWARE THAT PATIENT DESATTED LOW 69% AND HAD TO PRONE POSITION FOR MAJORITY OF NIGHT, FEEDING WAS HELD DUE TO POSITIONING AND SATURATIONS. CONFIRMED OK TO RESTART FEEDING AT PRONE POSITION, IF RESIDUALS AT LEAST 50 ML, THEN STOP FEEDINGS. ALSO MD AWARE OF COLACE ORDER, WILL SWITCH TO LIQUID COLACE. WILL CARRY TUBE FEEDING ORDER.
[2019-12-21 06:50] LABS: BASOPHILS % (AUTO) 0.1 % (0.0-2.0); EOSINOPHILS % (AUTO) 0.2 % (0.0-4.0); HEMATOCRIT 37.5 % (36-52); HEMOGLOBIN 12.3 g/dL (12.0-18.0); LYMPHOCYTES # (AUTO) 0.7 K/uL (2.0-11.5); LYMPHOCYTES % (AUTO) 7.2 % (20.5-51.1); MEAN CORPUSCULAR HEMOGLOBIN 30 pg (27-31); MEAN CORPUSCULAR HGB CONC 33 g/dL (33-37); MEAN CORPUSCULAR VOLUME 92.6 fL (80-94); MONOCYTES # (AUTO) 0.4 K/uL (0.8-1.0); MONOCYTES % (AUTO) 3.7 % (1.7-9.3); NEUTROPHILS # (AUTO) 8.4 K/uL (1.8-7.7); NEUTROPHILS % (AUTO) 88.8 % (42.2-75.2); PLATELET COUNT (AUTO) 334 K/uL (140-450); RED BLOOD CELL COUNT(AUTO) 4.05 MIL/uL (4.20-6.10); RED CELL DISTRIBUTION WIDTH 14.2 % (11.6-13.7); WHITE BLOOD COUNT (AUTO) 9.4 K/uL (4.8-10.8)
[2019-12-21 06:51] LABS: ANION GAP 8.7 (8-16); CREATININE 1.7 mg/dL (0.6-1.3); POTASSIUM 3.7 mmol/L (3.5-5.1)
--- NOTE | 2019-12-21 07:30 | NUR ---
RECEIVED BEDSIDE REPORT FROM COBOL APPLICATION DEVELOPER RN. PT IS SEDATED, RASS -3. TEMP 99.0. FLACC 0. NORMAL SINUS RHYTHM ON MONITOR. S1 S2 HEARD. ETT TO VENT WITH SETTINGS A/C VC FIO2 50%, VT 500, RR 22, PEEP 10. LUNGS SOUND DIMINISHED. PT IN PRONE POSITION. BREATHING EVEN. NGT IN PLACE TO RIGHT NARE. PLACEMENT CONFIRMED. ABDOMEN SOFT, ROUND W/ HYPOACTIVE BOWEL SOUNDS. PICC LINE TO CHRISTA ASYMPTOMATIC, PATENT AND INTACT. PT IS ON VERSED DRIP AT 9 MG/HR, FENTANYL DRIP AT 1.5 MCG/KG/HR. DRY WEIGHT [address] ASCENCIO CATH IN PLACE DRAINING CLEAR YELLOW URINE TO GRAVITY. DTI TO LEFT BUTTOCK NOTED. HOB AT 30 DEGREES. BED IN LOWEST POSITION LOCKED. CALL LIGHT WITHIN REACH. WILL CONTINUE TO MONITOR.
[2019-12-21] MEDS: fentaNYL 1 MG in NACL 0.9% 80 ML IV PRN ×2 (07:44→17:08)
[2019-12-21] MEDS: BLOOD GLUCOSE MONITORING 1 DEV DEV FS SCH ×4 (07:55→21:33)
--- NOTE | 2019-12-21 08:00 | NUR ---
PT SEEN BY DR. IBARRA AND RESIDENT GROUP. WILL FOLLOW UP ON ORDERS.
--- NOTE | 2019-12-21 08:20 | NUR ---
RECEIVED INTUBATED PT ON VENT WITH A 7.5 ETT SECURED @26 TEETH/GUM. VENT SETTINGS AC 22, VT 500, PEEP 10 AND FIO2 50%. PT NOT IN ANY DISTRESS AT THIS TIME. PT IS IN PRONE POSITION TOLERATING WELL AIRWAY IS PATENT AND SECURE. VENT IS PLUGGED INTO A RED OUTLET WITH ALARMS ON AND FUNCTIONING.
[2019-12-21] MEDS: MIDAZOLAM MDV 100 MG in NACL 0.9% 80 ML IV PRN ×2 (08:39→21:30)
[2019-12-21] MEDS: PANTOPRAZOLE 40 MG INJ VIAL IVP SCH (08:42)
[2019-12-21] MEDS: ZINC SULF 220 MG CAP PO SCH (08:43)
[2019-12-21] MEDS: ASCORBIC ACID 500 MG TAB PO SCH (08:43)
[2019-12-21] MEDS: ENOXAPARIN 100 MG/ML SYR SUBQ SCH ×2 (08:44→21:11)
[2019-12-21 08:53] LABS: PHOSPHORUS 3.7 mg/dL (2.5-4.9)
--- NOTE | 2019-12-21 09:00 | NUR ---
MEDICATIONS ADMINISTERED ORDERED. PT TOLERATED WELL.
--- NOTE | 2019-12-21 09:00 | NUR ---
MEDICATIONS ADMINISTERED ORDERED. PT TOLERATED WELL.
--- NOTE | 2019-12-21 10:20 | NUR ---
DR. JESUS IN TO SEE PT. PER DR. JESUS, OK TO HOLD FEEDING WHEN IN PRONE POSITION. WILL FOLLOW UP WITH ANY NEW ORDERS.
--- NOTE | 2019-12-21 11:18 | NUR ---
PT NOT IN ANY DISTRESS AT THIS TIME. VENT ALARMS ON AND FUNCTIONING. WILL CONTINUE TO MONITOR.
--- NOTE | 2019-12-21 12:00 | NUR ---
VAP ORAL CARE GIVEN. PT IS AFEBRILE. FLACC 0. RASS -3. VSS. WILL CONTINUE TO MONITOR.
[2019-12-21] MEDS: NACL 0.45% 1,000 ML IV SCH (12:30)
[2019-12-21] MEDS ORDERED: DOCUSATE 100 MG/10 ML UDC NG PRN (13:10)
--- NOTE | 2019-12-21 13:19 | NUR ---
PT REMAINS SEDATED NOT IN ANY DISTRESS AT THIS TIME. PT REMAINS IN THE PRONE POSITION. WILL CONTINUE TO MONITOR.
--- NOTE | 2019-12-21 13:39 | NUR ---
12/21/19 RD FOLLOW UP COMPLETED PLEASE REFER TO NUTRITION ASSESSMENT UNDER CARE ACTIVITY FOR ESTIMATED NUTRITIONAL NEEDS. 1. CONTINUE GLUCERNA 1.2 @60ML/HR DURING SUPINE POSITION - START AT 10 ML AND INCREASE BY 10 ML Q4H -THIS WILL PROVIDE 1440 ML OF VOLUME, 1728 KCAL, AND 86 GM OF PROTEIN 2. GLUCERNA 1.2 @ 30 ML/HR DURING PRONE POSITION -THIS WILL PROVIDE 720 ML, 864 KCAL, 43 GM PROTEIN 3. CONTINUE FREE WATER FLUSH OF 250 ML Q4H PER MD 4. RECOMMEND SWALLOW EVALUATION IF PT IS EXTUBATED 5. RD TO FOLLOW-UP 2-3 DAYS, HIGH RISK SERGIO BEAN RD
--- NOTE | 2019-12-21 13:40 | NUR ---
DR. BOYCE IN TO SEE PT. UPDATES GIVEN ON PT'S CONDITION.
--- NOTE | 2019-12-21 16:10 | NUR ---
PT TURNED BACK TO SUPINE POSITION. TOLERATED WELL.
--- NOTE | 2019-12-21 16:20 | NUR ---
FIO2 TITRATED TO 45% BY NOEL Alas WILL CONTINUE TO MONITOR.
[2019-12-21] MEDS: INSULIN LISPRO SLIDING SCALE 100 UNITS/ML VIAL SUBQ PRN (16:45)
--- NOTE | 2019-12-21 17:22 | NUR ---
PT REMAINS ON DOCUMENTED VENT SETTINGS. PT SEDATED NOT IN ANY DISTRESS AT THIS TIME. ETT IS SECURE WITH A PATENT AIRWAY. VENT ALARMS ON AND FUNCTIONING.
--- NOTE | 2019-12-21 18:15 | NUR ---
PT STARTED USING ABDOMINAL MUSCLES WHEN BREATHING AND TACHYCARDIC: HR 117 AT THIS TIME. FLACC 0. RASS -3, RR 15, SPO2 92%. RT AND DR. GUZMAN MADE AWARE, PT SEEN BY DR. GUZMAN AT BEDSIDE. WILL CONTINUE TO MONITOR.
--- NOTE | 2019-12-21 19:26 | NUR ---
REPORT GIVEN TO [employer] RN FOR CONTINUITY OF CARE. PT IS IN STABLE CONDITION.
--- NOTE | 2019-12-21 19:30 | NUR ---
RECEIVED PT FROM FARIDEH ESPINOZA. PT RESTING IN BED W RASS -3 ACHIEVED PER MD ORDERS. DRY WEIGHT 90 KG. PERRL WITH 2 MM PUPILS, SLUGGISH. SPO2 @ 98% ETT TO VENT WITH SETTINGS FOLLOWS: AC/VC: FIO2 45%, 500, 22, 10. COARSE BREATH SOUNDS NOTED. ETT 25CM @ LIP LINE. RR 23/MIN. NGT PATENT WITH ZERO RESIDUAL NOTED. + PLACEMENT VERIFIED VIA AIR BOLUS. BOWEL SOUNDS ACTIVE X4. ABD SOFT, NON-DISTENDED. PICC TO CHRISTA INFUSING 1.5 MCG/KG/MIN (10.8 ML/HR), VERSED 9 MG/HR, 1/2 NS 75 ML/HR. ASCENCIO CATH IN PLACE DRAINING CLEAR, YELLOW URINE TO GRAVITY. DRY WEIGHT 90 KG. SKIN WARM AND DRY. DTI TO LT BUTTOCK NOTED. SAFETY PRECAUTIONS IN PLACE. BED LOW AND LOCKED. WILL CONT TO MONITOR FOR CHANGES.
--- NOTE | 2019-12-21 22:00 | NUR ---
REPOSITIONED PT WITH PRESSURE AREAS OFFLOADED. SUCTIONED WITH SCANT DARK BROWN SECRETIONS. FLACC 0. SAFETY PRECAUTIONS IN PLACE. BED LOW AND LOCKED. WILL CONT TO MONITOR.
[2019-12-22] VITALS (103 sets, daily range): BP systolic 49–125; BP diastolic 34–81
--- NOTE | 2019-12-22 | NUR ---
FLACC 0. ORAL CARE PROVIDED. REPOSITIONED WITH PRESSURE AREAS OFFLOADED. WILL CONT TO MONITOR FOR CHANGES
[2019-12-22] MEDS: PIPERACILLIN/TAZOBACTAM 2.25 GM in DEXTROSE 5% 50 ML IV SCH ×4 (01:21→17:58)
[2019-12-22] MEDS: NACL 0.45% 1,000 ML IV SCH ×3 (01:22→17:59)
--- NOTE | 2019-12-22 02:00 | NUR ---
PT REMAINS @ RASS- 3 PER MD ORDERS. REMAINS ON PRESCRIBED VENT SETTINGS. WILL CONT TO MONITOR FOR CHANGES.
[2019-12-22] MEDS: fentaNYL 1 MG in NACL 0.9% 80 ML IV PRN ×3 (03:30→22:40)
--- NOTE | 2019-12-22 04:00 | NUR ---
BED BATH ADMINISTERED WITH CATH CARE. FLACC 0. REMAINS @ RASS -3. WILL CONT TO MONITOR FOR CHANGES.
[2019-12-22 06:21] LABS: BASOPHILS % (AUTO) 0.5 % (0.0-2.0); EOSINOPHILS # (AUTO) 0.1 K/uL (0-0.4); EOSINOPHILS % (AUTO) 0.7 % (0.0-4.0); HEMATOCRIT 36.8 % (36-52); HEMOGLOBIN 12.1 g/dL (12.0-18.0); LYMPHOCYTES % (AUTO) 10.1 % (20.5-51.1); MEAN CORPUSCULAR HEMOGLOBIN 31 pg (27-31); MEAN CORPUSCULAR HGB CONC 33 g/dL (33-37); MEAN CORPUSCULAR VOLUME 92.9 fL (80-94); MONOCYTES # (AUTO) 0.2 K/uL (0.8-1.0); MONOCYTES % (AUTO) 2.3 % (1.7-9.3); NEUTROPHILS # (AUTO) 8.1 K/uL (1.8-7.7); NEUTROPHILS % (AUTO) 86.4 % (42.2-75.2); PLATELET COUNT (AUTO) 355 K/uL (140-450); RED BLOOD CELL COUNT(AUTO) 3.96 MIL/uL (4.20-6.10); RED CELL DISTRIBUTION WIDTH 14.1 % (11.6-13.7); WHITE BLOOD COUNT (AUTO) 9.4 K/uL (4.8-10.8)
--- NOTE | 2019-12-22 06:45 | NUR ---
RECEIVED PT ON SETTINGS OF AC/VC 22,500,+10, 45% VENT IS PLUGGED INTO RED OUTLET, ALARMS ARE ON AND FUNCTIONING, AMBU BAG AT BEDSIDE. PT SHOWS NO SIGN OF DISTRESS AT THIS TIME. WILL CONTINUE TO MONITOR.
[2019-12-22 06:57] LABS: ANION GAP 12.1 (8-16); CREATININE 1.8 mg/dL (0.6-1.3); MAGNESIUM 2.5 mg/dL (1.8-2.4); PHOSPHORUS 4.2 mg/dL (2.5-4.9); POTASSIUM 4.1 mmol/L (3.5-5.1); TOTAL BILIRUBIN 0.8 mg/dL (0.0-1.0)
--- NOTE | 2019-12-22 07:15 | NUR ---
GAVE REPORT TO DAYSHIFT RN FOR CONTINUITY OF CARE.
--- NOTE | 2019-12-22 07:30 | NUR ---
BEDSIDE REPORT RECEIVED FROM S3B MULTI SENSOR OPERATOR NURSE, PT SEDATED TO RASS -3, WITH ETT TO VENT 7.5F, 27 AT TEETH, ACVC FIO2 45%, TV 500, PEEP 10, RR 22, VITALS STABLE, RESP UNLABORED, BILAT CHEST RISE AND FALL, SKIN WARM DRY COLOR WNL, SR ON MONITOR, CHRISTA PICCLINE, DOUBLE LUMEN, SITE WNL, NGT TO R NARE IN PLACE, FEEDING ONGOING AT 20ML/HR GOAL 60ML/HR, ABD SOFT NON DISTNEDED, ASCENCIO IN PLACE, DRIANING TO GRAVITY, GEN EDEMA NOTED ON ALL EXT, SKIN INTACT, PURPLE DISCOLORATION, NON BLANCHABLE ON LEFT BUTTOCK, POC REVIEWED, ALL SAFETY MEASURES IN PLACE, CURRENT DRIPS: 1/2NS AT 75ML/HR, VERSED 9MG/HR (9ML/HR), FENTANYL 1.5MCG/KG/HR (10.8ML/HR), DRY WT 90KG.
[2019-12-22] MEDS: BLOOD GLUCOSE MONITORING 1 DEV DEV FS SCH ×4 (07:49→21:00)
[2019-12-22 07:54] LABS: CKMB RELATIVE INDEX 0.2 (0.0-2.5)
[2019-12-22] MEDS: MIDAZOLAM MDV 100 MG in NACL 0.9% 80 ML IV PRN ×3 (08:04→20:56)
[2019-12-22] MEDS ORDERED: FUROSEMIDE 40 MG/4 ML VIAL IVP SCH (09:00)
[2019-12-22] MEDS: ENOXAPARIN 100 MG/ML SYR SUBQ SCH ×2 (09:00→20:58)
[2019-12-22] MEDS: ZINC SULF 220 MG CAP PO SCH (10:02)
[2019-12-22] MEDS: PANTOPRAZOLE 40 MG INJ VIAL IVP SCH (10:02)
[2019-12-22] MEDS: ASCORBIC ACID 500 MG TAB PO SCH (10:02)
--- NOTE | 2019-12-22 10:43 | NUR ---
DR JESUS AT BEDSIDE VENT SETTING DISCUSSED WITH RT VALDEZ, CXR ORDERED
--- NOTE | 2019-12-22 10:43 | NUR ---
CHANGED PT SET PEEP TO +[address] JESUS, VERBAL ORDER. PT IS TOLERATING AND SHOWS NO DISTRESS.
--- NOTE | 2019-12-22 12:15 | NUR ---
CHANGED PT SET PEEP BACK TO +10 TO KEEP SPO2 >90% PT IS CURRENTLY ON 50% +10, SPO2 READS 90%
--- NOTE | 2019-12-22 16:54 | NUR ---
LEFT PT ON DOCUMENTED SETTINGS. VENT CHECK IS DONE. PT SHOWS NO SIGN OF DISTRESS AT THIS TIME. VENT IS PLUGGED INTO RED OUTLET, ALARMS ARE ON AND FUNCTIONING, AMBU BAG AT BEDSIDE. ETT IS SECURED AND INTACT.
--- NOTE | 2019-12-22 17:20 | NUR ---
DR RAYMOND AT BEDSIDE, MADE AWARE OF TEMP 102.4
[2019-12-22] MEDS: INSULIN LISPRO SLIDING SCALE 100 UNITS/ML VIAL SUBQ PRN (18:01)
[2019-12-22] MEDS: ACETAMINOPHEN 650 MG/20.3 ML UDC NG PRN (18:02)
--- NOTE | 2019-12-22 19:45 | NUR ---
RECEIVED REPORT FROM AM SHIFT NURSE, PT ETT TO VENT FIO2 45 VT 500 RR 22 PEEP 10, DRY WEIGHT 90 KG RASS -3, PICC LINE IN PLACE CHRISTA INFUSING FENTANYL 1.5MCG/KG/MIN, AND VERSED 9MG/HR, PT HAS TUBE FEEDING CURRENTLY 40 ML/HR WATER FLUSH 250 ML/Q4; GOAL IS 60 ML/HR. PT HAS ASCENCIO CATHETER IN PLACE DRAINING DARK YELLOW URINE WITH SEDIMENTATION, PT LUNGS SOUNDS DIMINISHED, WITH S1 AND S2 HEART SOUNDS HEARD, PULSES PALPABLE UPPER AND LOWER EXTREMITIES, BOWEL SOUNDS ACTIVE ALL FOUR QUADRANTS, PT HAS DTI LEFT BUTTOCKS. HOB 30 DEGREES PER PROTOCOL, WITH SAFETY PROTOCOLS IN PLACE AND BED IS IN LOWEST POSITION WILL CONTINUE TO MONITOR PT.
--- NOTE | 2019-12-22 20:05 | NUR ---
RECEIVED REPORT FROM AM SHIFT. PATIENT SEEN AND ASSESSED. PATIENT IS INTUBATED WITH ETT SIZE 7.5 AND SECURED WITH ANCHOR-FAST AT 27CM @LIP. FOUND PATIENT ON VENT SETTINGS: AC/VC 22, 500, +10, 45% WITH SPO2 OF 92%. . AUSCULTATION REVEALS COARSE/DIMINISHED BILATERAL BREATH SOUNDS. SUCTION SMALL AMOUNT OF YELLOW THICK SECRETIONS. VENT PLUGGED IN RED OUTLET, ALARMS SET AND AUDIBLE, HOB > 30 DEGREES, AND BVM AT BEDSIDE. PATIENT IS IN NO APPARENT RESPIRATORY DISTRESS AT THIS TIME. MDI TX NOT INDICATED AT THIS TIME. WILL CONTINUE TO MONITOR PATIENT.
--- NOTE | 2019-12-22 21:00 | NUR ---
HELD FEEDING PT HAD RESIDUALS OF 150 ML, WILL RECHECK RESIDUALS
--- NOTE | 2019-12-22 21:00 | NUR ---
LOVENOX GIVEN SUBQ. BS 143. NO INSULIN COVERAGE NEEDED.
[2019-12-23] VITALS (63 sets, daily range): BP systolic 55–126; BP diastolic 24–96
--- NOTE | 2019-12-23 00:05 | NUR ---
PT BED BATH GIVEN, AND PT REPOSITIONED WILL CONTINUE TO MONITOR Addendum: 12/23/19 at 0150 by Darren Valle RN PT BITING ON ETT TUBE, AND HAS DECREASING SATURATION, PT REPOSITIONED AGAIN,AND ONE DOSE ATIVAN GIVEN, WILL CONTINUE TO MONITOR
[2019-12-23] MEDS: LORazepam 2 MG/ML VIAL IM/IVP PRN ×3 (00:50→03:45)
[2019-12-23] MEDS: ACETAMINOPHEN 650 MG/20.3 ML UDC NG PRN ×2 (00:50→08:30)
--- NOTE | 2019-12-23 00:50 | NUR ---
TYL GIVEN FOR LOW GRADE FEVER. ATIVAN GIVEN FOR ANXIETY. PT TOLERATED WELL.
[2019-12-23] MEDS: PIPERACILLIN/TAZOBACTAM 2.25 GM in DEXTROSE 5% 50 ML IV SCH ×3 (00:57→11:05)
--- NOTE | 2019-12-23 00:57 | NUR ---
HANK ZALDIVAR AND TEGAN. Addendum: 12/23/19 at 0401 by Vinh Dasivla RN FENTANYL INCREASED FROM 1.5MCG/KG/MIN TO 2MCG/KG/MIN.
--- NOTE | 2019-12-23 03:45 | NUR ---
PT BP DECREASED AND HR INCREASED. MD AWARE. ORDERED TO GIVE ATIVAN EARLY. ATIVAN GIVEN IVP.
--- NOTE | 2019-12-23 04:12 | NUR ---
PT BLOOD PRESSURE BELOW [address] GUZMAN MADE AWARE
[2019-12-23] MEDS: NACL 0.45% 1,000 ML IV SCH (05:05)
[2019-12-23] MEDS ORDERED: NACL 0.9% 500 ML IV SCH ×2 (05:20→06:45)
--- NOTE | 2019-12-23 05:20 | NUR ---
PT BLOOD PRESSURE DECREASED AND HR INCREASED. MD NOTIFIED. ORDERED 500ML BOLUS. INFUSING NOW.
[2019-12-23] MEDS: BLOOD GLUCOSE MONITORING 1 DEV DEV FS SCH ×2 (06:07→10:53)
--- NOTE | 2019-12-23 06:07 | NUR ---
HANK ZALDIVAR AND RUNNING. BS 170. 2 UNITS OF HUMALOG GIVEN. PT TOLERATED WELL.
[2019-12-23] MEDS: INSULIN LISPRO SLIDING SCALE 100 UNITS/ML VIAL SUBQ PRN (06:08)
[2019-12-23 06:25] LABS: BASOPHILS # (AUTO) 0.1 K/uL (0.00-0.22); BASOPHILS % (AUTO) 0.5 % (0.0-2.0); EOSINOPHILS # (AUTO) 0.1 K/uL (0-0.4); EOSINOPHILS % (AUTO) 0.5 % (0.0-4.0); HEMATOCRIT 31.4 % (36-52); HEMOGLOBIN 10.3 g/dL (12.0-18.0); LYMPHOCYTES # (AUTO) 1.6 K/uL (2.0-11.5); MEAN CORPUSCULAR HEMOGLOBIN 31 pg (27-31); MEAN CORPUSCULAR HGB CONC 33 g/dL (33-37); MEAN CORPUSCULAR VOLUME 93.7 fL (80-94); MONOCYTES # (AUTO) 0.4 K/uL (0.8-1.0); MONOCYTES % (AUTO) 2.5 % (1.7-9.3); NEUTROPHILS % (AUTO) 86.5 % (42.2-75.2); PLATELET COUNT (AUTO) 366 K/uL (140-450); RED BLOOD CELL COUNT(AUTO) 3.35 MIL/uL (4.20-6.10); RED CELL DISTRIBUTION WIDTH 13.9 % (11.6-13.7); WHITE BLOOD COUNT (AUTO) 16.2 K/uL (4.8-10.8)
--- NOTE | 2019-12-23 06:43 | NUR ---
PATIENT STILL REMAINS ON VENTILATOR SUPPORT. NO CHANGE IN VENT SETTINGS AT THIS TIME. AIRWAY IS PATENT. NO RESPIRATORY DISTRESS NOTED AT THIS MOMENT. WILL CONTINUE TO MONITOR PATIENT.
[2019-12-23] MEDS ORDERED: fentaNYL 0.05 MG/ML VIAL ONE (06:53)
[2019-12-23 07:03] LABS: ALBUMIN 1.9 g/dL (3.4-5.0); ANION GAP 9.4 (8-16); CARBON DIOXIDE 35.8 mmol/L (21-32); CREATININE 2.2 mg/dL (0.6-1.3); MAGNESIUM 2.3 mg/dL (1.8-2.4); PHOSPHORUS 5.4 mg/dL (2.5-4.9); POTASSIUM 4.2 mmol/L (3.5-5.1); TOTAL BILIRUBIN 0.8 mg/dL (0.0-1.0)
[2019-12-23] MEDS: fentaNYL 1 MG in NACL 0.9% 80 ML IV PRN (07:06)
--- NOTE | 2019-12-23 07:06 | NUR ---
FENTANYL UNAVAILABLE. ASKED SUPPLY CHAIN PLANNER FOR FENTANYL. NEW BAG HUNG.
--- NOTE | 2019-12-23 07:15 | NUR ---
CRITICAL LAB VALUE LACTIC ACID 2.2. NOTIFIED. ORDERS RECEIVED.
--- NOTE | 2019-12-23 07:30 | NUR ---
BEDSIDE REPORT RECEIVED FROM MECHANICS SUPERVISOR NURSE, PT SEDATED TO RASS -3, WITH ETT TO VENT 7.5F, 26 AT TEETH, ACVC FIO2 50%, TV 500, PEEP 10, RR 22, VITALS STABLE, RESP UNLABORED, BILAT CHEST RISE AND FALL, SKIN WARM DRY COLOR WNL, SR ON MONITOR, CHRISTA PICCLINE, DOUBLE LUMEN, SITE WNL, NGT TO R NARE IN PLACE, FEEDING ON HOLD, ABD SOFT NON DISTENDED, ASCENCIO IN PLACE, DRAINING DARK MEÑO SMALL AMOUT TO GRAVITY, GEN EDEMA NOTED ON ALL EXT, SKIN INTACT, PURPLE DISCOLORATION, NON BLANCHABLE ON LEFT BUTTOCK, POC REVIEWED, ALL SAFETY MEASURES IN PLACE, CURRENT DRIPS: 1/2NS AT 100ML/HR, VERSED 9MG/HR (9ML/HR), FENTANYL 2MCG/KG/HR (14.4ML/HR), DRY WT 90KG.
[2019-12-23] MEDS: ZINC SULF 220 MG CAP PO SCH (07:53)
[2019-12-23] MEDS: ASCORBIC ACID 500 MG TAB PO SCH (07:53)
[2019-12-23 08:18] LABS: CKMB RELATIVE INDEX 0.1 (0.0-2.5); CREATINE KINASE MB 0.6 ng/mL (0-3.6)
--- NOTE | 2019-12-23 08:45 | NUR ---
DR JESUS AT BEDSIDE, TO START LEVO NOW
[2019-12-23] MEDS: MIDAZOLAM MDV 100 MG in NACL 0.9% 80 ML IV PRN (09:04)
[2019-12-23] MEDS: PANTOPRAZOLE 40 MG INJ VIAL IVP SCH (09:05)
[2019-12-23] MEDS ORDERED: NACL 0.9% 1,000 ML IV SCH ×2 (09:05→12:30)
[2019-12-23] MEDS: ENOXAPARIN 100 MG/ML SYR SUBQ SCH (09:06)
[2019-12-23] MEDS ORDERED: VASOPRESSIN 20 UNITS in NACL 0.9% 250 ML IV SCH (11:10)
--- NOTE | 2019-12-23 11:10 | NUR ---
BP REMAINS LOW 67/40, LEVOPHED NOW MAXED AT 30MCG/MIN, 1000ML NS BOLUS COMPLETED, DR NUÑEZ MADE AWARE OF CONDITION, DR NUÑEZ TO ORDER NEOSYNEPHRINE DRIP.
[2019-12-23] MEDS ORDERED: VANCOMYCIN PER PHARMACY MC PRN (11:20)
[2019-12-23] MEDS ORDERED: PHENYLEPHRINE 10 MG in NACL 0.9% 250 ML IV PRN (12:25)
--- NOTE | 2019-12-23 12:25 | NUR ---
BP 62/43, SPO2 76%, VASOPRESSIN MAXED AT 0.04UNITS/MIN, LEVO MAXED AT 30MCG/KG/MIN, DR NUÑEZ CALLED TO NOTIFY, NEOSYNEPHRINE TO BE ORDERED
[2019-12-23] MEDS ORDERED: VANCOMYCIN HCL 1.25 GM in DEXTROSE 5% 250 ML IV SCH (13:00)
--- NOTE | 2019-12-23 13:00 | NUR ---
NEOSYNEPHRINE STARTED, 1000ML NS BOLUS STARTED, DR MARCELINA DUQUE AND DR VALDEZ AT BEDSIDE, REPORTED OF DECREASED URINE OUTPUT, CURRENT DRIPS, DR DUQUE TO CALL DAUGHTER TO UPDATE ON HIS CONDITION.
--- NOTE | 2019-12-23 14:45 | NUR ---
DR CABRERA AND JOAQUIN MADE AWARE THAT PT IS MAXED ON LEVO, BLESSING, AND VASOPRESSIN, WITH BP 64/41.
[2019-12-23] MEDS ORDERED: PHENYLEPHRINE 40 MG in NACL 0.9% 250 ML IV PRN (15:10)
[2019-12-23] MEDS ORDERED: ATROPINE 1 MG/10 ML SYR IVP ONE (15:24)
--- NOTE | 2019-12-23 15:24 | NUR ---
AUTO BP NOT RECORDING BP, BP CUFF ADJUSTED, LOCATION CHANGED, UNABLE TO GET BP, THEN PT NOW WITH BRADYCARDIA GRADUALLY DROPPED FROM 60 - 45 -31, DR NUÑEZ CALLED, TO GIVE ATROPINE IVP NOW STAT.
--- NOTE | 2019-12-23 15:25 | NUR ---
NO PULSE NOTED, CODE BLUE CALLED, DR CAPELLAN AND ER TEAM AT BEDSIDE, SEE CODE BLUE RECORD.
--- NOTE | 2019-12-23 15:30 | NUR ---
PT , TIME OF AT 1530, PRONOUNCED BY Daniel RUCKER. FAMILY TO BE CALLED BY DR NUÑEZ FOR NOTIFICATION.
--- NOTE | 2019-12-23 17:00 | NUR ---
[facility] [phone] CALLED, PER CAITLYN Fernandez NO TISSUE OR ORGAN DONATION FROM THIS PATIENT DUE TO COVID 19 POSITIVE. CASE #[id number]
--- NOTE | 2019-12-23 17:10 | NUR ---
SOLITARIO HIGUERA (DAUGHTER) CALLED, SHE WILL CONTACT [facility] SCHWARTZ AND NOTIFY THEM OF PT'S , SHE WILL CALL US BACK WITH PHONE NUMBER AND CUSTODIAN SUPERVISOR INFORMATION.
--- NOTE | 2019-12-23 17:15 | NUR ---
[facility] CALL[facility] AT [phone] TO NOTIFY THE OF PT, PER MULU DEPUTY WILL CALL US BACK.
--- NOTE | 2019-12-23 18:10 | NUR ---
[facility] DEPUTY LOGISTICS OPERATIONS MANAGER DEBBIE GONGORA CALLED US BACK, BECAUSE OF COVID 19 POSITIVE STATUS, IT IS OK TO CLEAN THE PATIENT AND RELEASE THE REMAINS TO A MORTUARY, RIB TRIM SEPARATOR DEPUTY WILL CALL US BACK LATER FOR MORE DETAILS REGARDING THE PATIENT AND ISSUE THE BUILDING ILLUMINATING ENGINEER'S CASE NUMBER.
--- NOTE | 2019-12-23 19:15 | NUR ---
CALLED SOLITARIO HIGUERA ([phone]) REGARDING PT'S BELONGINGS, BLACK TENNIS SHOES, BLACK JACKET, PAJAMA PANTS AND WEDDING RING. PER SOLITARIO, PLEASE DISPOSE OF CLOTHING AND SHOES, SHE WILL COME HEALTH SERVICE WORKER HIS WEDDING RING TOMORROW, RING TURNED INTO SECURITY Addendum: 12/23/19 at 1934 by Michell Barnes RN WEDDING RING TURNED IN TO CARRIE IN SECURITY
--- NOTE | 2019-12-23 19:34 | NUR ---
PER HIRAL FROM [facility] WE NEED TO CALL [phone] FOR CHILDCARE DIRECTOR ARRANGEMENT, SHAKER TENDER QUIN MONTE.
--- NOTE | 2019-12-23 20:03 | NUR ---
CALLED [facility], SPOKE WITH COLTEN BEASLEY 2 HOURS. Addendum: 12/23/19 at 2004 by Bharath Farias RN [phone]
--- NOTE | 2019-12-23 21:32 | NUR ---
NICHELLE ORTIZ REP, JOHN BLAIR, @ NURSE STATION, BODY VERIFIED PER PROTOCOL. BODY RELEASED IN CARE OF NICHELLE ORTIZ.
--- NOTE | 2019-12-23 22:15 | NUR ---
INTERNATIONAL MARKETING MANAGER KAROLINA ANDREWS RELEASED BODY,CASE #[id number]
[2019-12-24] MEDS ORDERED: ENOXAPARIN 40 MG/0.4 ML SYR SUBQ SCH (09:00)
== END 2019-12-23 21:30 | disposition expired | DRG 870 ==
LOC: MED 21:16 → EEVIPCON 21:16 → MTU 12-11 01:04 → MIC 12-12 17:30
PROVIDERS: ADMIT General Practice; ATTEND General Practice
PROC: 02HV33Z Insertion of Infusion Device into Superior Vena Cava, Percutaneous Approach (ICD-10-PCS; 2019-12-11)
PROC: 5A1955Z Respiratory Ventilation, Greater than 96 Consecutive Hours (ICD-10-PCS; principal; 2019-12-13)
PROC: 0BH17EZ Insertion of Endotracheal Airway into Trachea, Via Natural or Artificial Opening (ICD-10-PCS; 2019-12-13)
PROC: 5A12012 Performance of Cardiac Output, Single, Manual (ICD-10-PCS; 2019-12-13)
PROC: 5A2204Z Restoration of Cardiac Rhythm, Single (ICD-10-PCS; 2019-12-13)
PROC: 5A12012 Performance of Cardiac Output, Single, Manual (ICD-10-PCS; 2019-12-23)
DX: A41.9 Sepsis, unspecified organism (principal); G93.41 Metabolic encephalopathy; J12.89 Other viral pneumonia; U07.1 COVID-19; N17.0 Acute kidney failure with tubular necrosis; J96.01 Acute respiratory failure with hypoxia; R65.21 Severe sepsis with septic shock; E43 Unspecified severe protein-calorie malnutrition; N39.0 Urinary tract infection, site not specified; E87.1 Hypo-osmolality and hyponatremia; E87.0 Hyperosmolality and hypernatremia; E78.5 Hyperlipidemia, unspecified; E87.6 Hypokalemia; I10 Essential (primary) hypertension; J43.9 Emphysema, unspecified; K40.90 Unilateral inguinal hernia, without obstruction or gangrene, not specified as recurrent; K57.30 Diverticulosis of large intestine without perforation or abscess without bleeding; K80.20 Calculus of gallbladder without cholecystitis without obstruction; K76.0 Fatty (change of) liver, not elsewhere classified; N28.1 Cyst of kidney, acquired; K43.9 Ventral hernia without obstruction or gangrene; E11.65 Type 2 diabetes mellitus with hyperglycemia; I46.9 Cardiac arrest, cause unspecified; E83.41 Hypermagnesemia; Z90.49 Acquired absence of other specified parts of digestive tract; Z88.5 Allergy status to narcotic agent; Z68.28 Body mass index [BMI] 28.0-28.9, adult
CPT/HCPCS: 36415; 36600; 70450; 71045; 71250; 80048; 80053; 80305; 81001; 82140; 82550; 82553; 82728; 82803; 82948; 83036; 83605; 83615; 83690; 83735; 83880; 84100; 84443; 84484; 85025; 85379; 85610; 85651; 85730; 86140; 87040; 87070; 87081; 87086; 87205; 94002; 94003; 94664; 96361; 96365; 99285; C9113; J0456; J0461; J0696; J1644; J1650; J1815; J1885; J1940; J2060; J2250; J2370; J2543; J2704; J2920; J3010; J3370; J3480; J3490; J7030; J7060; Q0092